=== PATIENT | female | born 1925 ===

== ENCOUNTER 2016-10-12 11:45 | Inpatient (IN) | payer MEDICARE, BC ==
[2016-10-12] MEDS ORDERED: HYDROmorphone 0.5 MG/0.5 ML Syringe IVPUSH ONE ×2 (12:23→16:44)
[2016-10-12] MEDS ORDERED: Ondansetron 4 MG/2 ML SDV IVPUSH ONE (12:23)
[2016-10-12] MEDS ORDERED: Sodium Chloride 0.9% 1,000 ML IV SCH (12:30)
--- NOTE | 2016-10-12 12:32 | EDM.PDOC ---
ED HPI Trauma - General Chief Complaint: Lower Extremity Injury/Pain Stated Complaint: [facility] Time Seen by Provider: 10/12/16 12:06 Source: Reports: Patient History Limitations: Reports: No limitations - History of Present Illness INITIAL COMMENTS - FREE TEXT/NARRATIVE: Patient is a 89-year-old female with a history of Alzheimer's presents to the ED via ambulance complaining of left hip pain. Patient is a resident of a local longterm and walks normally with no assistance. She normally utilizes the hand rails when ambulating. Per staff patient was walking and grabbed the handrail slipped causing her to fall landing on her left side. Staff states patient did not have any loss consciousness but complained of severe pain to her left hip. She's been acting appropriate per nursing staff and family. Patient was transported to the ED via a balance with administration of IV pain medications with some relief during transfer. Occurred When: just prior to arrival Occurred Where: other ([facility]) Method of Injury: fall Severity: moderate Pain/Injury Location: Reports: lower extremity, left (left hip, left clavicle) Associated Symptoms: Reports: confusion (hx of dementia), trouble walking ( nonweightbearing) Allergies/ADRs: Allergies No Known Allergies Allergy (Verified 04/07/16 18:49) Home Medications: Ambulatory Orders Diltiazem [Tiazac] 60 mg PO TID 01/11/14 [Confirmed 10/12/16] Sertraline [Zoloft] 25 mg PO DAILY 01/11/14 [Confirmed 10/12/16] Brinzolamide/Brimonidine Tart [Simbrinza 1%-0.2% Eye Drops] 1 drop EYEBOTH DAILY 07/02/15 [Confirmed 10/12/16] Docusate Sodium [Colace] 100 mg PO DAILY 07/02/15 [Confirmed 10/12/16] Cranberry 250 mg PO BEDTIME 10/03/15 [Confirmed 10/12/16] Docusate Sodium [Dulcolax Stool Softener] 100 mg PO ONCALL 10/03/15 [Confirmed 10/12/16] Memantine HCl [Namenda Xr] 10 mg PO BID 10/03/15 [Confirmed 10/12/16] Acetaminophen [Tylenol] 650 mg PO BID 10/12/16 [Confirmed 10/12/16] Aspirin [Halfprin] 81 mg PO DAILY 10/12/16 [Confirmed 10/12/16] Bisacodyl [Correctol] 10 mg 10/12/16 Capsaicin 1 applic TOP BID PRN 10/12/16 [Confirmed 10/12/16] Nut Tx, Lact-Reduced, Iron [Boost VHC] 3 oz PO QID 10/12/16 [Confirmed 10/12/16] traMADol [Ultram] 50 mg PO ASDIRECTED PRN 10/12/16 [Confirmed 10/12/16] Past Medical History HEENT History: Reports: Glaucoma Cardiovascular History: Reports: Hypertension Gastrointestinal History: Reports: Chronic constipation Genitourinary History: Reports: Renal disease Musculoskeletal History: Reports: Osteoporosis Neurological History: Reports: Alzheimers disease, Other (see below) Other Neuro History: dementia ;behavioral disturbance Psychiatric History: Reports: Dementia Social & Family History - Tobacco Use Smoking Status *Q: Unknown Ever Smoked Second Hand Smoke Exposure: No - Caffeine Use Caffeine Use: Reports: Coffee - Alcohol Use Days Per Week of Alcohol Use: 0 - Recreational Drug Use Recreational Drug Use: No - Living Situation & Occupation Living situation: Reports: , with spouse, assisted living Review of Systems - Review of Systems Review Of Systems: Unable To Obtain Trauma Exam - Physical Exam Exam: See Below Exam Limited By: Other (confused, in pain, does not answer all questions) General Appearance: Reports: alert, WD/WN, moderate distress Head: Reports: atraumatic, normocephalic Eyes: bilateral eye: EOMI, PERRL Ears: Reports: normal external exam, hearing grossly normal Nose: Reports: normal inspection Throat/Mouth: Reports: Normal inspection, Normal voice, No airway compromise Neck: Reports: normal alignment, normal inspection Respiratory Exam: Reports: no respiratory distress, lungs clear, normal breath sounds, no accessory muscle use, chest non-tender Cardiovascular: Reports: normal peripheral pulses, regular rate, rhythm GI/Abdominal: Reports: normal bowel sounds, soft, non tender, no organomegaly, no distention Back: Reports: non-tender Extremities: Reports: other (Pain to the left hip with palpation. Left leg is shortened and externally rotated. Increased pain with palpation. Left: clavicle increased pain to the left clavicle with no swelling/deformity. ) Neurologic: Reports: no motor/sensory deficits, alert, normal mood/affect, other (Upper extremity strength is equal bilaterally. No obvious facial droop. Speech is clear. ) Skin: Reports: Normal color, Warm/dry Course - Vital Signs Last Recorded V/S: Last Vital Signs Temp 99.3 F 10/12/16 19:31 Pulse 79 10/12/16 19:31 Resp 16 10/12/16 19:31 BP 121/88 10/12/16 19:31 Pulse Ox 93 L 10/12/16 19:31 - Orders/Labs/Meds Orders: Active Orders 24 hr Category Date Time Status Insert Urinary Catheter [OM.PC] Stat Care 10/12/16 12:30 Ordered Urinary Catheter Assessment [RC] BID Care 10/12/16 12:26 Active Hip wo Cont Lt [CT] Stat Exams 10/12/16 12:22 Taken Sodium Chloride 0.9% [Normal Saline] 1,000 ml Med 10/12/16 12:30 Active IV ASDIRECTED Medication Orders Acetaminophen (Tylenol) 650 mg PO Q4H PRN PRN Reason: Pain (Mild 1-3)/fever Acetaminophen (Tylenol) 650 mg PO BID [facility] Last Admin: 10/12/16 20:35 Dose: Not Given Acetaminophen/Hydrocodone Bitart ([place] 325-5 Mg) 1 tab PO Q4H PRN PRN Reason: Pain (moderate 4-6) Albuterol/Ipratropium (Duoneb 3.0-0.5 Mg/3 Ml) 3 ml NEB Q4H PRN PRN Reason: Shortness Of Breath/wheezing Aspirin (Halfprin) 81 mg PO DAILY [facility] Bisacodyl (Dulcolax) 5 mg PO DAILY PRN PRN Reason: Constipation Capsaicin (Zostrix 0.025% Crm) 0 gm TOP BID PRN PRN Reason: Rash (USUALLY USED FOR PAIN) Diltiazem HCl (Cardizem) 60 mg PO TID [facility] Last Admin: 10/12/16 20:35 Dose: Not Given Docusate Sodium (Colace) 100 mg PO BID PRN PRN Reason: Constipation Hydromorphone HCl (Dilaudid) 0.25 mg IVPUSH Q2H PRN PRN Reason: Pain (severe 7-10) Last Admin: 10/12/16 18:15 Dose: 0.25 mg Sodium Chloride (Normal Saline) 1,000 mls @ 45 mls/hr IV ASDIRECTED [facility] Last Admin: 10/12/16 13:09 Dose: 45 mls/hr Promethazine HCl 12.5 mg/ (Sodium Chloride) 50.5 mls @ 100 mls/hr IV Q6H PRN PRN Reason: Nausea/Vomiting Ceftriaxone Sodium 1 gm/ (Sodium Chloride) 100 mls @ 200 mls/hr IV Q24H [facility] Last Admin: 10/12/16 20:33 Dose: 200 mls/hr Lorazepam (Ativan) 0.5 mg IV Q6H PRN PRN Reason: Anxiety Last Admin: 10/12/16 18:16 Dose: 0.5 mg Memantine (Namenda) 10 mg PO BID [facility] Last Admin: 10/12/16 20:35 Dose: Not Given Ondansetron HCl (Zofran) 4 mg IV Q6H PRN PRN Reason: Nausea/Vomiting Nut Tx, Lact-Reduced , Iron [Boost Vhc] 3 Oz 0 each PO QID [facility] Last Admin: 10/12/16 20:35 Dose: Admin: 10/12/16 17:21 Dose: Cranberry 250 Mg 0 each PO BEDTIME [facility] Last Admin: 10/12/16 20:35 Dose: Brinzolamide/Brimonidine Tart [ Simbrinza 1%-0.2% Eye Drop] 0 each EYEBOTH DAILY [facility] Polyethylene Glycol (Miralax) 17 gm PO DAILY PRN PRN Reason: Constipation Senna/Docusate Sodium (Senna Plus) 1 tab PO BID PRN PRN Reason: Constipation Sertraline HCl (Zoloft) 50 mg PO DAILY [facility] Temazepam (Restoril) 7.5 mg PO BEDTIME PRN PRN Reason: Sleep Labs: Laboratory Tests 10/12/16 10/12/16 10/12/16 Range/Units 13:10 13:10 13:10 WBC 7.04 (3.98-10.04) K/mm3 RBC 4.14 (3.98-5.22) M/mm3 Hgb 13.4 (11.2-15.7) gm/L Hct 40.7 (34.1-44.9) % MCV 98.3 H (79.4-94.8) fl MCH 32.4 H (25.6-32.2) pg MCHC 32.9 (32.2-35.5) g/dl RDW Std Deviation 44.5 (36.4-46.3) fL Plt Count 164 L (182-369) K/mm3 MPV 9.4 (9.4-12.3) fl Neut % (Auto) 81.1 H (34.0-71.1) % Lymph % (Auto) 11.8 L (19.3-51.7) % [place] % (Auto) 5.5 (4.7-12.5) % Eos % (Auto) 0.4 L (0.7-5.8) Baso % (Auto) 0.3 (0.1-1.2) % Neut # 5.71 (1.56-6.13) K/mm3 Lymph # 0.83 L (1.18-3.74) K/mm3 [place] # 0.39 H (0.24-0.36) K/mm3 Eos # 0.03 L (0.04-0.36) K/mm3 Baso # 0.02 (0.01-0.08) K/mm3 PT 10.7 (8.0-13.0) SECONDS INR 0.98 APTT 22 (22-36) SECONDS Sodium 143 (136-145) mEq/L Potassium 4.1 (3.5-5.1) mEq/L Chloride 103 (98-107) mEq/L Carbon Dioxide 30 (21-32) mEq/L Anion Gap 14.1 (5-15) BUN 26 H (7-18) mg/dL Creatinine 0.9 (0.55-1.02) mg/dL Est Cr Clr Drug Dosing 29.80 mL/min Estimated GFR (MDRD) 59 (>60) mL/min BUN/Creatinine Ratio 28.9 H (14-18) Glucose 135 H (83-115) mg/dL Calcium 9.4 (8.5-10.1) mg/dL Total Bilirubin 0.4 (0.2-1.0) mg/dL AST 28 (15-37) U/L ALT 36 (14-59) U/L Alkaline Phosphatase 106 (46-116) U/L Total Protein 7.8 (6.4-8.2) g/dl Albumin 4.4 (3.4-5.0) g/dl Globulin 3.4 gm/dL Albumin/Globulin Ratio 1.3 (1-2) Urine Color (Yellow) Urine Appearance (Clear) Urine pH (5.0-8.0) Ur Specific Golden (1.005-1.030) Urine Protein (Negative) Urine Glucose (UA) (Negative) Urine Ketones (Negative) Urine Occult Blood (Negative) Urine Nitrite (Negative) Urine Bilirubin (Negative) Urine Urobilinogen (0.2-1.0) Ur Leukocyte Esterase (Negative) Urine RBC (0-5) /hpf Urine WBC (0-5) /hpf Ur Squamous Epith Cells (0-5) /hpf Amorphous Sediment (NOT SEEN) /hpf Urine Bacteria (FEW) /hpf Urine Mucus (FEW) /hpf Blood Type Gel Antibody Screen 10/12/16 10/12/16 Range/Units 13:10 14:30 WBC (3.98-10.04) K/mm3 RBC (3.98-5.22) M/mm3 Hgb (11.2-15.7) gm/L Hct (34.1-44.9) % MCV (79.4-94.8) fl MCH (25.6-32.2) pg MCHC (32.2-35.5) g/dl RDW Std Deviation (36.4-46.3) fL Plt Count (182-369) K/mm3 MPV (9.4-12.3) fl Neut % (Auto) (34.0-71.1) % Lymph % (Auto) (19.3-51.7) % [place] % (Auto) (4.7-12.5) % Eos % (Auto) (0.7-5.8) Baso % (Auto) (0.1-1.2) % Neut # (1.56-6.13) K/mm3 Lymph # (1.18-3.74) K/mm3 [place] # (0.24-0.36) K/mm3 Eos # (0.04-0.36) K/mm3 Baso # (0.01-0.08) K/mm3 PT (8.0-13.0) SECONDS INR APTT (22-36) SECONDS Sodium (136-145) mEq/L Potassium (3.5-5.1) mEq/L Chloride (98-107) mEq/L Carbon Dioxide (21-32) mEq/L Anion Gap (5-15) BUN (7-18) mg/dL Creatinine (0.55-1.02) mg/dL Est Cr Clr Drug Dosing mL/min Estimated GFR (MDRD) (>60) mL/min BUN/Creatinine Ratio (14-18) Glucose (83-115) mg/dL Calcium (8.5-10.1) mg/dL Total Bilirubin (0.2-1.0) mg/dL AST (15-37) U/L ALT (14-59) U/L Alkaline Phosphatase (46-116) U/L Total Protein (6.4-8.2) g/dl Albumin (3.4-5.0) g/dl Globulin gm/dL Albumin/Globulin Ratio (1-2) Urine Color Light yellow (Yellow) Urine Appearance Cloudy H (Clear) Urine pH 7.5 (5.0-8.0) Ur Specific Golden 1.025 (1.005-1.030) Urine Protein 2+ H (Negative) Urine Glucose (UA) Negative (Negative) Urine Ketones Negative (Negative) Urine Occult Blood 2+ H (Negative) Urine Nitrite Positive H (Negative) Urine Bilirubin Negative (Negative) Urine Urobilinogen 0.2 (0.2-1.0) Ur Leukocyte Esterase Trace H (Negative) Urine RBC 0-5 (0-5) /hpf Urine WBC 20-30 H (0-5) /hpf Ur Squamous Epith Cells 0-5 (0-5) /hpf Amorphous Sediment Moderate H (NOT SEEN) /hpf Urine Bacteria Many H (FEW) /hpf Urine Mucus Few (FEW) /hpf Blood Type O POSITIVE Gel Antibody Screen Negative Meds: Medications Generic Name Dose Route Start Last Admin Trade Name Freq PRN Reason Stop Dose Admin Acetaminophen 650 mg 10/12/16 14:48 Tylenol PO Q4H PRN Pain (Mild 1-3)/fever Acetaminophen 650 mg 10/12/16 21:00 10/12/16 20:35 Tylenol PO Not Given BID ONEL Acetaminophen/Hydrocodone Bitart 1 tab 10/12/16 14:48 [place] 325-5 Mg PO Q4H PRN Pain (moderate 4-6) Albuterol/Ipratropium 3 ml 10/12/16 14:48 Duoneb 3.0-0.5 Mg/3 Ml NEB Q4H PRN Shortness Of Breath/wheezing Aspirin 81 mg 10/13/16 09:00 Halfprin PO DAILY ON[facility] Bisacodyl 5 mg 10/12/16 14:48 Dulcolax PO DAILY PRN Constipation Capsaicin 0 gm 10/12/16 16:57 Zostrix 0.025% Crm TOP BID PRN Rash (USUALLY USED FOR PAIN) Diltiazem HCl 60 mg 10/12/16 21:00 10/12/16 20:35 Cardizem PO Not Given TID [facility] Docusate Sodium 100 mg 10/12/16 14:48 Colace PO BID PRN Constipation Hydromorphone HCl 0.25 mg 10/12/16 14:48 10/12/16 18:15 Dilaudid IVPUSH 0.25 mg Q2H PRN Administration Pain (severe 7-10) Sodium Chloride 1,000 mls @ 45 mls/hr 10/12/16 12:30 10/12/16 13:09 Normal Saline IV 45 mls/hr ASDIRECTED ONEL Administration Promethazine HCl 12.5 mg/ 50.5 mls @ 100 mls/hr 10/12/16 14:48 Sodium Chloride IV Q6H PRN Nausea/Vomiting Ceftriaxone Sodium 1 gm/ 100 mls @ 200 mls/hr 10/12/16 20:15 10/12/16 20:33 Sodium Chloride IV 200 mls/hr Q24H ONEL Administration Lorazepam 0.5 mg 10/12/16 14:48 10/12/16 18:16 Ativan IV 0.5 mg Q6H PRN Administration Anxiety Memantine 10 mg 10/12/16 21:00 10/12/16 20:35 Namenda PO Not Given BID [facility] Ondansetron HCl 4 mg 10/12/16 14:48 Zofran IV Q6H PRN Nausea/Vomiting Nut Tx, Lact-Reduced 0 each 10/12/16 17:00 10/12/16 20:35 , Iron [Boost Vhc] 3 PO Not Given Oz QID [facility] Cranberry 250 Mg 0 each 10/12/16 21:00 10/12/16 20:35 PO Not Given BEDTIME [facility] Brinzolamide/ 0 each 10/13/16 09:00 Brimonidine Tart [ EYEBOTH Simbrinza 1%-0.2% DAILY ON[facility] Eye Drop] Polyethylene Glycol 17 gm 10/12/16 14:48 Miralax PO DAILY PRN Constipation Senna/Docusate Sodium 1 tab 10/12/16 14:48 Senna Plus PO BID PRN Constipation Sertraline HCl 50 mg 10/13/16 09:00 Zoloft PO DAILY ON[facility] Temazepam 7.5 mg 10/12/16 14:48 Restoril PO BEDTIME PRN Sleep Discontinued Medications Generic Name Dose Route Start Last Admin Trade Name [place] PRN Reason Stop Dose Admin Hydromorphone HCl 0.25 mg 10/12/16 12:23 10/12/16 13:09 Dilaudid IVPUSH 10/12/16 12:24 0.25 mg ONETIME ONE Administration Hydromorphone HCl 0.25 mg 10/12/16 16:44 10/12/16 16:54 Dilaudid IVPUSH 10/12/16 16:45 0.25 mg ONETIME ONE Administration Ondansetron HCl 4 mg 10/12/16 12:23 10/12/16 13:11 Zofran IVPUSH 10/12/16 12:24 4 mg ONETIME ONE Administration - Re-Assessments/Exams Free Text/Narrative Re-Assessment/Exam: Peripheral IV started by [place] ambulance. Patient received fentanyl 50mcg during transport for pain. Patient has history of dementia and is in obvious pain. Patient is grimacing and has tears with examining. Patient answers minimal questions during examination. Per family her mentation is appropriate. She is a DNR. It was reported patient normally walks without any assistance. Uses the hand rail to ambulate and this a.m. was walking as she normally does when she went to grab the handrail, missed the handrail, and fell landing on her left shoulder/left hip/hitting her head as well. This was a witnessed fall with no LOC. Patient immediately screamed out in pain. Patient was noted to be hypotensive immediately after the fall. Patient takes cardizem 60mg t.i.d. First dose was at 0800 hrs this a.m. Upon arrival to the E.D. patients BP was 166/84, HR 71, SPO2 95. Patients pain to the left shoulder has subsided while in the E.D. Patient has no pain with movement of the left arm at the shoulder. Additional Family arrived at patients side and is responding appropriately. Ordered NS 45mls/hr, zofran 4mg IVP, dilaudid 0.25mg IVP. Initial labs and studies include: CBC,C14,CRP, PT/INR,PTT, Type and Screen, UA w/micro, CT of the head without, CT cervical spine, CT of the left hip, murray insertion. 10/12/16 12:33 10/12/16 12:45 EKG revealed sinus rhythm at a rate of 71, normal P axis, GA interval is 182, QTC is 492, no acute ST changes noted. Artifact present. 10/12/16 13:[address] impression: Senescent changes noted above. No acute intracranial abnormalities seen. CT of the cervical spine impression: Diffuse degenerative changes noted above. No acute fractures seen. Left hip CT: displaced fracture of the neck of femoral head. Final interpretation pending. Awaiting xray of chest to evaluate clavicle and left femur. 10/12/16 13:36 chest x-ray impression: Emphysematous change. Nothing acute is identified. 10/12/16 14:[address] 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 He has accepted the patient and will do surgery tomorrow a.m. as long as will admit. Discussed with Dr. Lane, suggest asking if family is okay with having surgery here in [place]. If so will admit. 10/12/16 14:31 Patients family and spouse are okay with patient staying here in [place] to have surgery. Admit orders placed by Dr. Perry. Departure - Departure Time of Disposition: 14:33 Disposition: Admitted As Inpatient 68 Condition: good Clinical Impression: Fracture of neck of femur, hip Dementia Qualifiers: Dementia type: Alzheimer's disease Alzheimer's disease onset: unspecified onset Dementia behavioral disturbance: without behavioral disturbance Qualified Code(s): G30.9 - Alzheimer's disease, unspecified Hip fracture, left Qualifiers: Encounter type: initial encounter Fracture type: closed Qualified Code(s): S72.002A - Fracture of unspecified part of neck of left femur, initial encounter for closed fracture - My Orders Last 24 Hours: My Active Orders 10/12/16 12:22 Hip wo Cont Lt [CT] Stat 10/12/16 12:26 Urinary Catheter Assessment [RC] BID 10/12/16 12:30 Insert Urinary Catheter [OM.PC] Stat Sodium Chloride 0.9% [Normal Saline] 1,000 ml IV ASDIRECTED - Assessment/Plan Last 24 Hours: My Active Orders 10/12/16 12:22 Hip wo Cont Lt [CT] Stat 10/12/16 12:26 Urinary Catheter Assessment [RC] BID 10/12/16 12:30 Insert Urinary Catheter [OM.PC] Stat Sodium Chloride 0.9% [Normal Saline] 1,000 ml IV ASDIRECTED
--- NOTE | 2016-10-12 13:08 | CT ---
Head CT Technique: Multiple axial sections through the brain were obtained. Intravenous contrast was not utilized. Comparison: Previous head CT exam of 04/07/16. Findings: Ventricles along with basal cisterns and sulci over the convexities are moderately prominent. Diminished density is noted within the subcortical and periventricular white matter compatible with small vessel ischemic demyelination change. No evidence of intracranial hemorrhage. No midline shift or mass effect is seen. Bone window settings were reviewed which shows the visualized sinuses to appear clear. No discrete calvarial abnormality is seen. Impression: 1. Senescent change as noted above. No acute intracranial abnormality is seen. Diagnostic code #2
--- NOTE | 2016-10-12 13:08 | CT ---
CT cervical spine Technique: Multiple axial sections were obtained from above C1 inferiorly to the bottom of T1. Reconstructed sagittal and coronal images were reviewed. Findings: C2-C3: Moderate disc space narrowing is noted. Mild spondylolisthesis is seen. Spondylolisthesis is felt to be due to degenerative apophyseal change. Severe disc space narrowing at C3-C4, C4-C5 and C5-C6. Moderate disc space narrowing is noted at C6-C7. Mild posterior spurring seen at C3-C4 and C4-C5 as well as C5-C6 and C6-C7. Minimal retrolisthesis is noted at C4-C5 and C5-C6 compatible with degenerative apophyseal change. Mild right-sided neural foraminal stenosis noted at C3-C4. Moderate to severe left-sided neural foraminal stenosis noted at C4-C5 and severe right-sided neural foraminal stenosis noted at C4-C5. Moderate to severe bilateral neural foraminal stenosis noted C5-C6. Mild right-sided neural foraminal stenosis noted at C6-C7. No bony central canal stenosis is seen. No fracture is identified. Diffuse degenerative change is seen within the uncovertebral joints from C3-C4 through C6-C7. Impression: 1. Diffuse degenerative change as noted above. 2. No acute fracture is seen. Diagnostic code #3
--- NOTE | 2016-10-12 13:34 | CR ---
Chest: Supine view of the chest was obtained. Comparison: Previous chest x-ray of 07/02/15. Heart size and mediastinum are within normal limits. Lungs are hyperinflated but clear. Scoliosis is noted within the spine. Disc space narrowing is noted within the lumbar spine. Impression: 1. Emphysematous change. Other incidental findings. Nothing acute is identified. Diagnostic code #2
[2016-10-12] MEDS ORDERED: Temazepam 7.5 MG Cap PO PRN (14:48)
[2016-10-12] MEDS ORDERED: Polyethylene Glycol 3350 Powder 17 GM Packet PO PRN (14:48)
[2016-10-12] MEDS ORDERED: Acetaminophen 325 MG Tab PO PRN (14:48)
[2016-10-12] MEDS ORDERED: Albuterol/Ipratropium 3.0-0.5 MG/3 ML Neb Soln NEB PRN (14:48)
[2016-10-12] MEDS ORDERED: Bisacodyl 5 MG Tab PO PRN (14:48)
[2016-10-12] MEDS ORDERED: Ondansetron 4 MG/2 ML SDV IV PRN (14:48)
[2016-10-12] MEDS ORDERED: Docusate Sodium 100 MG Cap PO PRN (14:48)
[2016-10-12] MEDS ORDERED: Promethazine 12.5 MG in Sodium Chloride 0.9% 50 ML IV PRN (14:48)
--- NOTE | 2016-10-12 14:48 | PCM.HP ---
H&P History of Present Illness - General Date of Service: 10/12/16 Admit Problem/Dx: Admission Diagnosis/Problem Admission Diagnosis/Problem Fall Source of Information: Patient, Family, Old records History Limitations: Reports: Physical impairment, Other (Memory Impairment) - History of Present Illness Initial Comments - Free Text/Narative: This is an 89 yo elderly white female with past medical hx/o HTN, Constipation, CKD, Osteoporosis, and Advanced Alzheimer's Disease who presented to E w/ complaints of pain status fall and was found to have left hip fracture. Patient is ambulatory prior to fall. Her risk factors include: impaired vision, gait imbalance, osteoporosis and advanced dementia. Her initial work up shows an unremarkable CBC except for a platelet of 164. His Chemistry shows remarkable for BUN 26 and BS 135. UA is pos for UTI. Imaging studies: Cervical Spine, Head CT scan, and CXR all show no acute abnormal findings. FXR shows sub-capital left hip fracture. Hip CT scan confirms hip fracture. Patient was admitted under the services of Hospitalist Team. Ortho has been consulted for surgical correction. She is DNR/DNI. Left Hip Pain Score (Numeric/FACES): 0 - Related Data Allergies/Adverse Reactions: Allergies Allergy/AdvReac Type Severity Reaction Status Date / Time No Known Allergies Allergy Verified 04/07/16 18:49 Home Medications: Home Meds Diltiazem [Tiazac] 60 mg PO TID 01/11/14 [History] Sertraline [Zoloft] 25 mg PO DAILY 01/11/14 [History] Brinzolamide/Brimonidine Tart [Simbrinza 1%-0.2% Eye Drops] 1 drop EYEBOTH DAILY 07/02/15 [History] Docusate Sodium [Colace] 100 mg PO DAILY 07/02/15 [History] Cranberry 250 mg PO BEDTIME 10/03/15 [History] Docusate Sodium [Dulcolax Stool Softener] 100 mg PO ONCALL 10/03/15 [History] Memantine HCl [Namenda Xr] 10 mg PO BID 10/03/15 [History] Acetaminophen [Tylenol] 650 mg PO BID 10/12/16 [History] Aspirin [Halfprin] 81 mg PO DAILY 10/12/16 [History] Bisacodyl [Correctol] 10 mg 10/12/16 [History] Capsaicin 1 applic TOP BID PRN 10/12/16 [History] Nut Tx, Lact-Reduced, Iron [Boost VHC] 3 oz PO QID 10/12/16 [History] traMADol [Ultram] 50 mg PO ASDIRECTED PRN 10/12/16 [History] Past Medical History HEENT History: Reports: Glaucoma Cardiovascular History: Reports: Hypertension Gastrointestinal History: Reports: Chronic constipation Genitourinary History: Reports: Renal disease Musculoskeletal History: Reports: Osteoporosis Neurological History: Reports: Alzheimers disease, Other (see below) Other Neuro History: dementia ;behavioral disturbance Psychiatric History: Reports: Dementia Social & Family History - Tobacco Use Smoking Status *Q: Unknown Ever Smoked Second Hand Smoke Exposure: No - Caffeine Use Caffeine Use: Reports: Coffee - Alcohol Use Days Per Week of Alcohol Use: 0 - Recreational Drug Use Recreational Drug Use: No - Living Situation & Occupation Living situation: Reports: , with spouse, assisted living H&P Review of Systems - Review of Systems: Review Of Systems: Unable To Obtain Review of Systems Comment:: Patient does not respond to simple commands. She is confused and in pain. Exam - Exam Exam: See Below - Vital Signs Vital Signs: Last Vital Signs Temp 37.1 C 10/12/16 11:54 Pulse 75 10/12/16 11:54 Resp 30 H 10/12/16 11:54 BP 174/118 H 10/12/16 11:54 Pulse Ox 99 10/12/16 11:54 Weight: 44.543 kg - Exam Quality Assessment: No: supplemental oxygen General: other (awake). No: oriented, cooperative, mild distress HEENT: Conjunctiva clear, Mucosa moist & pink, Nares patent, Normal nasal septum , Posterior pharynx clear, Pupils equal, Pupils reactive Neck: supple, trachea midline, 2+ carotid pulse wo bruit Lungs: Normal respiratory effort, Decreased breath sounds Cardiovascular: regular rate, regular rhythm Abdomen: normal bowel sounds, soft. No: organomegaly (Female) Exam: Deferred Rectal (Female) Exam: Deferred Back Exam: normal inspection, decreased range of motion Extremities: normal inspection, normal pulses, clubbing, cyanosis. No: calf tenderness, edema Peripheral Pulses: 2+: dorsalis pedis (L), dorsalis pedis (R) Skin: warm, dry, intact Neuro Extensive - Mental Status: No: oriented x3, normal cognition, memory intact Neuro Extensive - Motor, Sensory, Reflexes: CN II-XII intact (very limited), abnormal gait Psychiatric: No: normal affect, normal mood - Patient Data Lab Results last 24 hrs: Laboratory Results - last 24 hr 10/12/16 10/12/16 10/12/16 Range/Units 13:10 13:10 13:10 WBC 7.04 (3.98-10.04) K/mm3 RBC 4.14 (3.98-5.22) M/mm3 Hgb 13.4 (11.2-15.7) gm/L Hct 40.7 (34.1-44.9) % MCV 98.3 H (79.4-94.8) fl MCH 32.4 H (25.6-32.2) pg MCHC 32.9 (32.2-35.5) g/dl RDW Std Deviation 44.5 (36.4-46.3) fL Plt Count 164 L (182-369) K/mm3 MPV 9.4 (9.4-12.3) fl Neut % (Auto) 81.1 H (34.0-71.1) % Lymph % (Auto) 11.8 L (19.3-51.7) % [place] % (Auto) 5.5 (4.7-12.5) % Eos % (Auto) 0.4 L (0.7-5.8) Baso % (Auto) 0.3 (0.1-1.2) % Neut # 5.71 (1.56-6.13) K/mm3 Lymph # 0.83 L (1.18-3.74) K/mm3 [place] # 0.39 H (0.24-0.36) K/mm3 Eos # 0.03 L (0.04-0.36) K/mm3 Baso # 0.02 (0.01-0.08) K/mm3 PT 10.7 (8.0-13.0) SECONDS INR 0.98 APTT 22 (22-36) SECONDS Sodium 143 (136-145) mEq/L Potassium 4.1 (3.5-5.1) mEq/L Chloride 103 (98-107) mEq/L Carbon Dioxide 30 (21-32) mEq/L Anion Gap 14.1 (5-15) BUN 26 H (7-18) mg/dL Creatinine 0.9 (0.55-1.02) mg/dL Est Cr Clr Drug Dosing 29.80 mL/min Estimated GFR (MDRD) 59 (>60) mL/min BUN/Creatinine Ratio 28.9 H (14-18) Glucose 135 H (83-115) mg/dL Calcium 9.4 (8.5-10.1) mg/dL Total Bilirubin 0.4 (0.2-1.0) mg/dL AST 28 (15-37) U/L ALT 36 (14-59) U/L Alkaline Phosphatase 106 (46-116) U/L Total Protein 7.8 (6.4-8.2) g/dl Albumin 4.4 (3.4-5.0) g/dl Globulin 3.4 gm/dL Albumin/Globulin Ratio 1.3 (1-2) Urine Color (Yellow) Urine Appearance (Clear) Urine pH (5.0-8.0) Ur Specific [place] (1.005-1.030) Urine Protein (Negative) Urine Glucose (UA) (Negative) Urine Ketones (Negative) Urine Occult Blood (Negative) Urine Nitrite (Negative) Urine Bilirubin (Negative) Urine Urobilinogen (0.2-1.0) Ur Leukocyte Esterase (Negative) Blood Type Gel Antibody Screen 10/12/16 10/12/16 Range/Units 13:10 14:30 WBC (3.98-10.04) K/mm3 RBC (3.98-5.22) M/mm3 Hgb (11.2-15.7) gm/L Hct (34.1-44.9) % MCV (79.4-94.8) fl MCH (25.6-32.2) pg MCHC (32.2-35.5) g/dl RDW Std Deviation (36.4-46.3) fL Plt Count (182-369) K/mm3 MPV (9.4-12.3) fl Neut % (Auto) (34.0-71.1) % Lymph % (Auto) (19.3-51.7) % [place] % (Auto) (4.7-12.5) % Eos % (Auto) (0.7-5.8) Baso % (Auto) (0.1-1.2) % Neut # (1.56-6.13) K/mm3 Lymph # (1.18-3.74) K/mm3 [place] # (0.24-0.36) K/mm3 Eos # (0.04-0.36) K/mm3 Baso # (0.01-0.08) K/mm3 PT (8.0-13.0) SECONDS INR APTT (22-36) SECONDS Sodium (136-145) mEq/L Potassium (3.5-5.1) mEq/L Chloride (98-107) mEq/L Carbon Dioxide (21-32) mEq/L Anion Gap (5-15) BUN (7-18) mg/dL Creatinine (0.55-1.02) mg/dL Est Cr Clr Drug Dosing mL/min Estimated GFR (MDRD) (>60) mL/min BUN/Creatinine Ratio (14-18) Glucose (83-115) mg/dL Calcium (8.5-10.1) mg/dL Total Bilirubin (0.2-1.0) mg/dL AST (15-37) U/L ALT (14-59) U/L Alkaline Phosphatase (46-116) U/L Total Protein (6.4-8.2) g/dl Albumin (3.4-5.0) g/dl Globulin gm/dL Albumin/Globulin Ratio (1-2) Urine Color Light yellow (Yellow) Urine Appearance Cloudy H (Clear) Urine pH 7.5 (5.0-8.0) Ur Specific [place] 1.025 (1.005-1.030) Urine Protein 2+ H (Negative) Urine Glucose (UA) Negative (Negative) Urine Ketones Negative (Negative) Urine Occult Blood 2+ H (Negative) Urine Nitrite Positive H (Negative) Urine Bilirubin Negative (Negative) Urine Urobilinogen 0.2 (0.2-1.0) Ur Leukocyte Esterase Trace H (Negative) Blood Type O POSITIVE Gel Antibody Screen Negative Result Diagrams: 10/12/16 13:10 10/12/16 13:10 *Q Meaningful Use (ADM) - VTE *Q VTE Criteria *Q: - Stroke *Q Stroke Criteria *Q: - AMI *Q AMI Criteria *Q: Problem List Initiated/Reviewed/Updated: Yes Orders Last 24hrs: Active Orders 24 hr Category Date Time Status Patient Status [ADT] Routine ADT 10/12/16 14:33 Active EKG 12 Lead [EKG Documentation Completion] [RC] STAT Care 10/12/16 11:30 Active Insert Urinary Catheter [OM.PC] Stat Care 10/12/16 12:30 Ordered Urinary Catheter Assessment [RC] ASDIRECTED Care 10/12/16 12:26 Active Femur Min 2V Lt [CR] Stat Exams 10/12/16 12:31 Taken Hip wo Cont Lt [CT] Stat Exams 10/12/16 12:22 Taken PATIENT RETYPE [BBK] Stat Lab 10/12/16 13:10 Results TYPE AND SCREEN [BBK] Stat Lab 10/12/16 13:10 Results UA W/MICROSCOPIC [URIN] Stat Lab 10/12/16 14:30 Results Sodium Chloride 0.9% [Normal Saline] 1,000 ml Med 10/12/16 12:30 Active IV ASDIRECTED Medication Orders Sodium Chloride (Normal Saline) 1,000 mls @ 45 mls/hr IV ASDIRECTED ONEL Last Admin: 10/12/16 13:09 Dose: 45 mls/hr Assessment/Plan Comment:: Assessment/Plan: Acute: Left Sub-Capital Hip Fx - 2/2 Mechanical Fall - Risk Factors: Osteoporosis, Alzheimer's Disease, Poor Vision with Glaucoma +/- Hypotension post fall (noted hypotensive) - No LOC - Planned surgical correction by Ortho in am - Family agreed to stay despite limited resources Pre-Operative Risk Stratification - Risk factors: None - METS > 4, SVS, Ekg /CXR: benign - Physical exam fairly benign - No recent cardiac or lung eval - No active cardiac or lung disease - Not an active smoker - Based on the data provided, the patient carries mild-mod cardiac risk for intermediate surgical risk Urinary Tract Infection - Start IV Rocephin 1 gram daily - Pending UA Sx/Cx Chronic: Glaucoma HTN Constipation Renal Disease Osteoporosis Alzheimer's Disease Plan: Routine AM labs Resume Home Meds IV ATB PT/OT consult IS q2 awake after surgery PPI for GI ppx DVT ppx: SCDs for now Pain Management: Aspiration/Fall Precautions Code status: DNR/DNI
--- NOTE | 2016-10-12 14:49 | CR ---
Left femur: AP and lateral views of the left femur were obtained. Subcapital fracture within the left hip is again seen. Joint space narrowing is seen within the medial knee. Osteopenia is noted. No additional abnormality is noted within the left femur. Impression: 1. Subcapital left hip fracture. 2. Degenerative change within the knee. 3. No additional abnormality is identified on left femur study. Diagnostic code #3
[2016-10-12] MEDS ORDERED: Denosumab 60 MG/1 ML Syringe SUBCUT SCH (15:00)
--- NOTE | 2016-10-12 15:11 | PCM.PREANE ---
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: Reports: no symptoms Respiratory: Reports: no symptoms Cardiovascular: Reports: no symptoms GI: Reports: no symptoms Other: Reports: none - PHYSICAL ASSESSMENT HR: 82 O2 Sat by Pulse Oximetry: 99 RR: 30 Vital Signs: Last Vital Signs Temp 37.1 C 10/12/16 11:54 Pulse 75 10/12/16 11:54 Resp 30 H 10/12/16 11:54 BP 174/118 H 10/12/16 11:54 Pulse Ox 99 10/12/16 11:54 Height: 1.57 m Weight: 44.543 kg ASA Class: 3 Mental Status: other (dementia diagnosised 3 years ago according to family) Airway Class: Mallampati = 2 Dentition: Reports: normal dentition Thyro-Mental Finger Breadths: 2 Mouth Opening Finger Breadths: 3 ROM/Head Extension: limited/partial (unable to follow commands at the time of assessment) Respiratory Status: lungs clear to auscultation bilaterally Cardiovascular Status: regular rate & rhythm, normal S1, S2, no murmur, blood pressure WNL - LAB Values: Laboratory Last Values WBC 7.04 K/mm3 (3.98-10.04) 10/12/16 13:10 RBC 4.14 M/mm3 (3.98-5.22) 10/12/16 13:10 Hgb 13.4 gm/L (11.2-15.7) 10/12/16 13:10 Hct 40.7 % (34.1-44.9) 10/12/16 13:10 MCV 98.3 fl (79.4-94.8) H 10/12/16 13:10 MCH 32.4 pg (25.6-32.2) H 10/12/16 13:10 MCHC 32.9 g/dl (32.2-35.5) 10/12/16 13:10 RDW Std Deviation 44.5 fL (36.4-46.3) 10/12/16 13:10 Plt Count 164 K/mm3 (182-369) L 10/12/16 13:10 MPV 9.4 fl (9.4-12.3) 10/12/16 13:10 Neut % (Auto) 81.1 % (34.0-71.1) H 10/12/16 13:10 Lymph % (Auto) 11.8 % (19.3-51.7) L 10/12/16 13:10 [place] % (Auto) 5.5 % (4.7-12.5) 10/12/16 13:10 Eos % (Auto) 0.4 (0.7-5.8) L 10/12/16 13:10 Baso % (Auto) 0.3 % (0.1-1.2) 10/12/16 13:10 Neut # 5.71 K/mm3 (1.56-6.13) 10/12/16 13:10 Lymph # 0.83 K/mm3 (1.18-3.74) L 10/12/16 13:10 [place] # 0.39 K/mm3 (0.24-0.36) H 10/12/16 13:10 Eos # 0.03 K/mm3 (0.04-0.36) L 10/12/16 13:10 Baso # 0.02 K/mm3 (0.01-0.08) 10/12/16 13:10 PT 10.7 SECONDS (8.0-13.0) 10/12/16 13:10 INR 0.98 10/12/16 13:10 APTT 22 SECONDS (22-36) 10/12/16 13:10 Sodium 143 mEq/L (136-145) 10/12/16 13:10 Potassium 4.1 mEq/L (3.5-5.1) 10/12/16 13:10 Chloride 103 mEq/L (98-107) 10/12/16 13:10 Carbon Dioxide 30 mEq/L (21-32) 10/12/16 13:10 Anion Gap 14.1 (5-15) 10/12/16 13:10 BUN 26 mg/dL (7-18) H 10/12/16 13:10 Creatinine 0.9 mg/dL (0.55-1.02) 10/12/16 13:10 Est Cr Clr Drug Dosing 29.80 mL/min 10/12/16 13:10 Estimated GFR (MDRD) 59 mL/min (>60) 10/12/16 13:10 BUN/Creatinine Ratio 28.9 (14-18) H 10/12/16 13:10 Glucose 135 mg/dL (83-115) H 10/12/16 13:10 Calcium 9.4 mg/dL (8.5-10.1) 10/12/16 13:10 Total Bilirubin 0.4 mg/dL (0.2-1.0) 10/12/16 13:10 AST 28 U/L (15-37) 10/12/16 13:10 ALT 36 U/L (14-59) 10/12/16 13:10 Alkaline Phosphatase 106 U/L (46-116) 10/12/16 13:10 Total Protein 7.8 g/dl (6.4-8.2) 10/12/16 13:10 Albumin 4.4 g/dl (3.4-5.0) 10/12/16 13:10 Globulin 3.4 gm/dL 10/12/16 13:10 Albumin/Globulin Ratio 1.3 (1-2) 10/12/16 13:10 Urine Color Light yellow (Yellow) 10/12/16 14:30 Urine Appearance Cloudy (Clear) H 10/12/16 14:30 Urine pH 7.5 (5.0-8.0) 10/12/16 14:30 Ur Specific [place] 1.025 (1.005-1.030) 10/12/16 14:30 Urine Protein 2+ (Negative) H 10/12/16 14:30 Urine Glucose (UA) Negative (Negative) 10/12/16 14:30 Urine Ketones Negative (Negative) 10/12/16 14:30 Urine Occult Blood 2+ (Negative) H 10/12/16 14:30 Urine Nitrite Positive (Negative) H 10/12/16 14:30 Urine Bilirubin Negative (Negative) 10/12/16 14:30 Urine Urobilinogen 0.2 (0.2-1.0) 10/12/16 14:30 Ur Leukocyte Esterase Trace (Negative) H 10/12/16 14:30 Blood Type O POSITIVE 10/12/16 13:10 Gel Antibody Screen Negative 10/12/16 13:10 - ALLERGIES Allergies/Adverse Reactions: Allergies Allergy/AdvReac Type Severity Reaction Status Date / Time No Known Allergies Allergy Verified 04/07/16 18:49 - BLOOD Blood Available: Yes Product(s) Available: PRBC - ANESTHESIA PLAN Anesthesia Type Planned: spinal - ACKNOWLEDGEMENTS Pt an appropriate candidate for the planned anesthesia: Yes Alternatives and risks of anesthesia discussed w pt/guardian: Yes Pt/Guardian understands and agree with anesthesia plan: Yes PreAnesthesia Questionnaire HEENT History: Reports: Glaucoma Cardiovascular History: Reports: Hypertension Gastrointestinal History: Reports: Chronic constipation Genitourinary History: Reports: Renal disease Musculoskeletal History: Reports: Osteoporosis Neurological History: Reports: Other (see below) Other Neuro History: dementia ;behavioral disturbance Psychiatric History: Reports: Dementia - Past Surgical History Female Surgical History: Reports: Hysterectomy - SUBSTANCE USE Smoking Status *Q: Never Smoker Second Hand Smoke Exposure: No Days Per Week of Alcohol Use: 0 Recreational Drug Use History: No - HOME MEDS Home Medications: Home Meds Diltiazem [Tiazac] 60 mg PO TID 01/11/14 [History] Sertraline [Zoloft] 50 mg PO DAILY 01/11/14 [History] Brinzolamide/Brimonidine Tart [Simbrinza 1%-0.2% Eye Drops] 1 drop EYEBOTH DAILY 07/02/15 [History] Docusate Sodium [Colace] 100 mg PO DAILY 07/02/15 [History] Cranberry 250 mg PO BEDTIME 10/03/15 [History] Docusate Sodium [Dulcolax Stool Softener] 100 mg PO ONCALL PRN 10/03/15 [History ] Memantine HCl [Namenda Xr] 10 mg PO BID 10/03/15 [History] Denosumab [Prolia] 60 mg SUBCUT ASDIRECTED 04/07/16 [History] Bisacodyl [Correctol] 10 mg 10/12/16 [History] Nut Tx, Lact-Reduced, Iron [Boost VHC] 3 oz PO QID 10/12/16 [History] - CURRENT (IN HOUSE) MEDS Current Meds: Current Medications Acetaminophen (Tylenol) 650 mg PO Q4H PRN PRN Reason: Pain (Mild 1-3)/fever Acetaminophen/Hydrocodone Bitart ([place] 325-5 Mg) 1 tab PO Q4H PRN PRN Reason: Pain (moderate 4-6) Albuterol/Ipratropium (Duoneb 3.0-0.5 Mg/3 Ml) 3 ml NEB Q4H PRN PRN Reason: Shortness Of Breath/wheezing Bisacodyl (Dulcolax) 5 mg PO DAILY PRN PRN Reason: Constipation Denosumab (Prolia) 60 mg SUBCUT ASDIRECTED [facility] Docusate Sodium (Colace) 100 mg PO BID PRN PRN Reason: Constipation Hydromorphone HCl (Dilaudid) 0.25 mg IVPUSH Q2H PRN PRN Reason: Pain (severe 7-10) Sodium Chloride (Normal Saline) 1,000 mls @ 45 mls/hr IV ASDIRECTED [facility] Last Admin: 10/12/16 13:09 Dose: 45 mls/hr Promethazine HCl 12.5 mg/ (Sodium Chloride) 50.5 mls @ 100 mls/hr IV Q6H PRN PRN Reason: Nausea/Vomiting Lorazepam (Ativan) 0.5 mg IV Q6H PRN PRN Reason: Anxiety Non-Formulary Medication (Nut Tx, Lact-Reduced, Iron [Boost Vhc]) 3 oz PO QID [facility] Non-Formulary Medication (Cranberry) 250 mg PO BEDTIME [facility] Non-Formulary Medication (Brinzolamide/Brimonidine Tart [Simbrinza 1%-0.2% Eye Drops]) 1 drop EYEBOTH DAILY [facility] Ondansetron HCl (Zofran) 4 mg IV Q6H PRN PRN Reason: Nausea/Vomiting Polyethylene Glycol (Miralax) 17 gm PO DAILY PRN PRN Reason: Constipation Senna/Docusate Sodium (Senna Plus) 1 tab PO BID PRN PRN Reason: Constipation Sertraline HCl (Zoloft) 50 mg PO DAILY [facility] Temazepam (Restoril) 15 mg PO BEDTIME PRN PRN Reason: Sleep Discontinued Medications Hydromorphone HCl (Dilaudid) 0.25 mg IVPUSH ONETIME ONE Stop: 10/12/16 12:24 Last Admin: 10/12/16 13:09 Dose: 0.25 mg Ondansetron HCl (Zofran) 4 mg IVPUSH ONETIME ONE Stop: 10/12/16 12:24 Last Admin: 10/12/16 13:11 Dose: 4 mg
[2016-10-12] MEDS ORDERED: Capsaicin 0.025% Crm 60 GM Tube TOP PRN (16:57)
[2016-10-12] MEDS: [UNRECOGNIZED DRUG - OTHER] PO SCH ×2 (17:21→20:35)
[2016-10-12] MEDS: IRON PO SCH ×2 (17:21→20:35)
[2016-10-12] MEDS: HYDROmorphone 0.5 MG/0.5 ML Syringe IVPUSH PRN (18:15)
[2016-10-12] MEDS: LORazepam 2 MG/ML MDV IV PRN (18:16)
[2016-10-12] MEDS: cefTRIAXone 1 GM in Sodium Chloride 0.9% 100 ML IV SCH (20:33)
[2016-10-12] MEDS: Acetaminophen 325 MG Tab PO SCH (20:35)
[2016-10-12] MEDS: CRANBERRY 250 MG PO SCH (20:35)
[2016-10-12] MEDS: Memantine 10 MG Tab PO SCH (20:35)
[2016-10-13] MEDS: HYDROmorphone 0.5 MG/0.5 ML Syringe IVPUSH PRN (01:13)
--- NOTE | 2016-10-13 08:11 | CT ---
CT left hip Technique: Multiple axial sections through the left hip were obtained. Subcapital fracture is seen with apex anterior angulation. Mild foreshortening is also seen. Superior and inferior pubic rami appear without fracture on the left side. No acetabular abnormality is seen. Impression: 1. Angulated and foreshortened subcapital fracture within the left hip. Diagnostic code #3 MTDD
[2016-10-13] MEDS ORDERED: Vancomycin 1 GM SDV ONE (08:26)
--- NOTE | 2016-10-13 08:33 | CONS ---
CONSULTING PHYSICIAN: Tayo Covington MD DATE OF CONSULTATION: 10/12/2016 Orthopedic consultation called for by emergency room physician for evaluation of a left hip fracture. HISTORY OF PRESENT ILLNESS: This is an 89-year-old female, who [facility] local [facility] today when she suffered a fall onto the hip area. After the fall, the patient had severe pain and was unable walk. She has a history of dementia and is very poor historian, was brought into the emergency room, evaluated for other possible injuries with different studies and then x-rays of her left hip, which identified a subcapital fracture, left hip that was displaced. After the hip fracture was identified, Orthopedic consultation was called for. The patient was evaluated in the emergency room and found to have severely complaints of pain in the hip area. Family is with the patient. ALLERGIES: She has no known drug allergy. PAST MEDICAL HISTORY: The patient has a history of depression and dementia. There is also possibility of cellulitis involving the left foot area. She has a previous history of a fractured clavicle and also history of falls. MEDICATIONS: Include albuterol, lorazepam, Ativan. She is on multivitamins, Zoloft, Restoril, and MiraLAX. PAST SURGICAL HISTORY: Positive. No anesthesia complications or problem noted. SOCIAL HISTORY: The patient is a nonsmoker and nondrinker. Negative bleeding history, negative blood clot history. REVIEW OF SYSTEMS: HEAD, EYES, EARS, NOSE, AND THROAT: The patient currently is clear with no complaints. PULMONARY: The patient has no previous history of significant pulmonary problems, although she does have a possible COPD. Rest of the review of systems noncontributory. PHYSICAL EXAMINATION: GENERAL: Today, reveals an 89-year-old female in severe distress HEAD, EYES, EARS, NOSE, AND THROAT: Normocephalic. NECK: Supple. CHEST: Clear. COR: Regular rhythm and rate. ABDOMEN: Soft. : Intact. EXTREMITIES: Examination left hip reveals severe pain on direct pressure palpation on the hip. Severe pain on any type of internal and external rotation. The patient lysed with the left hip externally rotated. Circulation is intact distally. The left lower extremity. Pelvis stress examinations were negative for any pelvic type fracture or injury. Right lower extremity examination was intact. SKIN: Intact. RADIOLOGY EVALUATION: The x-rays reveal a subcapital fracture, left hip. That is severely displaced. IMPRESSION: Subcapital fracture, left hip displaced. PLANS: 1. The patient is to undergo medical stabilization. 2. Undergo hemiprosthesis, left hip. Procedure was outlined to the family along with the risks and complications involved with that. They understand that and have consented to the surgery. DEEPTHI /[id number]
[2016-10-13] MEDS ORDERED: Metoprolol Tartrate 5 MG/5 ML SDV IVPUSH ONE (08:34)
[2016-10-13] MEDS ORDERED: Lidocaine 1%/Sod Bicarbonate in NS 8.4% 1 ML Syringe IV PRN (08:57)
[2016-10-13] MEDS ORDERED: Sodium Chloride 0.9% 10 ML Syringe FLUSH PRN (08:57)
[2016-10-13] MEDS ORDERED: Docusate Sodium 100 MG Cap PO SCH (09:00)
[2016-10-13] MEDS ORDERED: Ondansetron 4 MG/2 ML SDV IVPUSH PRN (09:03)
[2016-10-13] MEDS ORDERED: fentaNYL 100 MCG/2 ML SDV IVPUSH PRN (09:03)
[2016-10-13] MEDS ORDERED: Propofol 200 MG/20 ML SDV ONE (09:26)
[2016-10-13] MEDS ORDERED: Ondansetron 4 MG/2 ML SDV ONE (09:28)
[2016-10-13] MEDS ORDERED: Lidocaine 1% 4 ML ONE (09:28)
--- NOTE | 2016-10-13 09:28 | PCM.PN ---
- General Info Date of Service: 10/13/16 Admission Dx/Problem (Free Text): Admission Diagnosis/Problem Admission Diagnosis/Problem Fall Lori is seen this morning resting in bed, appears comfortable. She is essentially nonverbal with me this morning due to advanced dementia. Nursing reports no concerns overnight. Family is in room and reports no concerns. She is scheduled for ORIF of left hip with Dr. Covington this morning. Functional Status: Reports: pain controlled, urinating (murray cath in place). Denies: ambulating - Review of Systems Systems Review Comment:: ROS unable to obtain as patient is nonverbal; resting comfortably in bed this morning and appears comfortable. - Patient Data Vitals - most recent: Last Vital Signs Temp 99.7 F 10/13/16 07:53 Pulse 81 10/13/16 08:57 Resp 20 10/13/16 07:53 BP 133/83 10/13/16 08:57 Pulse Ox 96 10/13/16 07:53 Weight - most recent: 97 lb 12.8 oz I&O - last 24 hours: Intake & Output 10/12/16 10/13/16 10/13/16 22:59 06:59 14:59 Intake Total 684 Output Total 350 Balance 334 Lab Results last 24 hrs: Laboratory Results - last 24 hr 10/13/16 10/13/16 10/13/16 Range/Units 01:10 06:42 06:42 WBC 8.95 (3.98-10.04) K/mm3 RBC 4.02 (3.98-5.22) M/mm3 Hgb 13.0 (11.2-15.7) gm/L Hct 39.7 (34.1-44.9) % MCV 98.8 H (79.4-94.8) fl MCH 32.3 H (25.6-32.2) pg MCHC 32.7 (32.2-35.5) g/dl RDW Std Deviation 44.9 (36.4-46.3) fL Plt Count 149 L (182-369) K/mm3 MPV 9.6 (9.4-12.3) fl Neut % (Auto) 84.6 H (34.0-71.1) % Lymph % (Auto) 5.3 L (19.3-51.7) % [place] % (Auto) 9.8 (4.7-12.5) % Eos % (Auto) 0 L (0.7-5.8) Baso % (Auto) 0.1 (0.1-1.2) % Neut # 7.57 H (1.56-6.13) K/mm3 Lymph # 0.47 L (1.18-3.74) K/mm3 [place] # 0.88 H (0.24-0.36) K/mm3 Eos # 0.00 L (0.04-0.36) K/mm3 Baso # 0.01 (0.01-0.08) K/mm3 Manual Slide Review Abnormal smear Sodium 141 (136-145) mEq/L Potassium 4.6 (3.5-5.1) mEq/L Chloride 104 (98-107) mEq/L Carbon Dioxide 30 (21-32) mEq/L Anion Gap 11.6 (5-15) BUN 25 H (7-18) mg/dL Creatinine 0.9 (0.55-1.02) mg/dL Est Cr Clr Drug Dosing 29.68 mL/min Estimated GFR (MDRD) 59 (>60) mL/min BUN/Creatinine Ratio 27.8 H (14-18) Glucose 129 H (83-115) mg/dL Calcium 8.8 (8.5-10.1) mg/dL Magnesium 1.8 (1.8-2.4) mg/dl MRSA (PCR) Negative Med Orders - Current: Current Medications Acetaminophen (Tylenol) 650 mg PO Q4H PRN PRN Reason: Pain (Mild 1-3)/fever Acetaminophen (Tylenol) 650 mg PO BID [facility] Last Admin: 10/12/16 20:35 Dose: Not Given Acetaminophen/Hydrocodone Bitart (Ramona 325-5 Mg) 1 tab PO Q4H PRN PRN Reason: Pain (moderate 4-6) Albuterol (Proventil Neb Soln) 2.5 mg NEB Q6HRRT [facility] Albuterol/Ipratropium (Duoneb 3.0-0.5 Mg/3 Ml) 3 ml NEB Q4H PRN PRN Reason: Shortness Of Breath/wheezing Aspirin (Halfprin) 81 mg PO DAILY [facility] Bisacodyl (Dulcolax) 5 mg PO DAILY PRN PRN Reason: Constipation Capsaicin (Zostrix 0.025% Crm) 0 gm TOP BID PRN PRN Reason: Rash (USUALLY USED FOR PAIN) Diltiazem HCl (Cardizem) 60 mg PO TID [facility] Last Admin: 10/13/16 08:34 Dose: Not Given Docusate Sodium (Colace) 100 mg PO BID [facility] Fentanyl (Sublimaze) 50 mcg IVPUSH Q5M PRN PRN Reason: Pain Stop: 10/13/16 18:00 Hydromorphone HCl (Dilaudid) 0.25 mg IVPUSH Q2H PRN PRN Reason: Pain (severe 7-10) Last Admin: 10/13/16 01:13 Dose: 0.25 mg Sodium Chloride (Normal Saline) 1,000 mls @ 45 mls/hr IV ASDIRECTED [facility] Last Admin: 10/12/16 13:09 Dose: 45 mls/hr Promethazine HCl 12.5 mg/ (Sodium Chloride) 50.5 mls @ 100 mls/hr IV Q6H PRN PRN Reason: Nausea/Vomiting Ceftriaxone Sodium 1 gm/ (Sodium Chloride) 100 mls @ 200 mls/hr IV Q24H [facility] Last Admin: 10/12/16 20:33 Dose: 200 mls/hr Lactated Ringer's (Ringers, Lactated) 1,000 mls @ 125 mls/hr IV ASDIRECTED [facility] Lidocaine/Sodium Bicarbonate (Buffered Lidocaine 1% In Ns 8.4%) 0.25 ml IV ONETIME PRN PRN Reason: Prior to IV Start Stop: 10/13/16 18:00 Lorazepam (Ativan) 0.5 mg IV Q6H PRN PRN Reason: Anxiety Last Admin: 10/12/16 18:16 Dose: 0.5 mg Memantine (Namenda) 10 mg PO BID [facility] Last Admin: 10/12/16 20:35 Dose: Not Given Ondansetron HCl (Zofran) 4 mg IV Q6H PRN PRN Reason: Nausea/Vomiting Ondansetron HCl (Zofran) 4 mg IVPUSH ONETIME PRN PRN Reason: Nausea/Vomiting Stop: 10/13/16 18:00 Nut Tx, Lact-Reduced , Iron [Boost Vhc] 3 Oz 0 each PO QID [facility] Last Admin: 10/12/16 20:35 Dose: Not Given Cranberry 250 Mg 0 each PO BEDTIME ONEL Last Admin: 10/12/16 20:35 Dose: Not Given Brinzolamide/Brimonidine Tart [ Simbrinza 1%-0.2% Eye Drop] 0 each EYEBOTH DAILY [facility] Polyethylene Glycol (Miralax) 17 gm PO DAILY PRN PRN Reason: Constipation Sertraline HCl (Zoloft) 50 mg PO DAILY [facility] Sodium Chloride (Saline Flush) 10 ml FLUSH ASDIRECTED PRN PRN Reason: Keep Vein Open Stop: 10/13/16 18:00 Temazepam (Restoril) 7.5 mg PO BEDTIME PRN PRN Reason: Sleep Discontinued Medications Docusate Sodium (Colace) 100 mg PO BID PRN PRN Reason: Constipation Docusate Sodium (Colace) 100 mg PO DAILY [facility] Hydromorphone HCl (Dilaudid) 0.25 mg IVPUSH ONETIME ONE Stop: 10/12/16 12:24 Last Admin: 10/12/16 13:09 Dose: 0.25 mg Hydromorphone HCl (Dilaudid) 0.25 mg IVPUSH ONETIME ONE Stop: 10/12/16 16:45 Last Admin: 10/12/16 16:54 Dose: 0.25 mg Lidocaine HCl (Xylocaine-Mpf 1%) Confirm Administered Dose 4 mls @ as directed .ROUTE .STK-MED ONE Stop: 10/13/16 09:29 Iodine (Iodine 2% Mild Tincture) Confirm Administered Dose 30 ml .ROUTE .STK- MED ONE Stop: 10/13/16 08:27 Metoprolol Tartrate (Lopressor) 5 mg IVPUSH ONETIME ONE Stop: 10/13/16 08:35 Last Admin: 10/13/16 08:57 Dose: 5 mg Ondansetron HCl (Zofran) 4 mg IVPUSH ONETIME ONE Stop: 10/12/16 12:24 Last Admin: 10/12/16 13:11 Dose: 4 mg Ondansetron HCl (Zofran) Confirm Administered Dose 4 mg .ROUTE .STK-MED ONE Stop: 10/13/16 09:29 Propofol (Diprivan 20 Ml) Confirm Administered Dose 400 mg .ROUTE .STK-MED ONE Stop: 10/13/16 09:27 Senna/Docusate Sodium (Senna Plus) 1 tab PO BID PRN PRN Reason: Constipation Vancomycin HCl (Vancomycin) Confirm Administered Dose 1 gm .ROUTE .K-MED ONE Stop: 10/13/16 08:27 - Exam General: alert (arouses easily and opens eyes when spoken to), cooperative, no acute distress HEENT: Pupils equal, EOMI, Mucous membr. moist/pink Neck: supple Lungs: Clear to auscultation, Normal respiratory effort, Decreased breath sounds (to bases) Cardiovascular: regular rate, regular rhythm, murmurs (grade 2 systolic murmur noted) Abdomen: bowel sounds present, soft, no tenderness, no distension (Female) Exam: Deferred Extremities: no edema, no calf tenderness Peripheral Pulses: 1+: dorsalis pedis (L), dorsalis pedis (R) Skin: warm, dry Psy/Mental Status: alert - Problem List & Annotations (1) Fracture of neck of femur, hip SNOMED Code(s): 4556675 Code(s): S72.009A - FRACTURE OF UNSP PART OF NECK OF UNSP FEMUR, INIT Status: Acute Priority: High Current Visit: Yes (2) UTI (urinary tract infection) SNOMED Code(s): 34709344 Code(s): N39.0 - URINARY TRACT INFECTION, SITE NOT SPECIFIED Status: Acute Current Visit: No Qualifiers: Urinary tract infection type: acute cystitis Hematuria presence: with hematuria Qualified Code(s): N30.01 - Acute cystitis with hematuria (3) Fall as cause of accidental injury at home as place of occurrence SNOMED Code(s): 25473724, 920403230 Code(s): W19.XXXA - UNSPECIFIED FALL, INITIAL ENCOUNTER; Y92.009 - UNSP PLACE IN UNSP NON-INSTITUT (PRIVATE) RESIDENCE PLACE Status: Acute Priority: High Current Visit: Yes (4) Dementia SNOMED Code(s): 30481166 Code(s): F03.90 - UNSPECIFIED DEMENTIA WITHOUT BEHAVIORAL DISTURBANCE Status: Chronic Priority: Medium Current Visit: Yes Qualifiers: Dementia type: Alzheimer's disease Alzheimer's disease onset: unspecified onset Dementia behavioral disturbance: without behavioral disturbance Qualified Code(s): G30.9 - Alzheimer's disease, unspecified; F02.80 - Dementia in other diseases classified elsewhere without behavioral disturbance (5) Acute renal insufficiency SNOMED Code(s): 517366143 Code(s): N28.9 - DISORDER OF KIDNEY AND URETER, UNSPECIFIED Status: Chronic Priority: Medium Current Visit: Yes - Problem List Review Problem List Initiated/Reviewed/Updated: Yes - My Orders Last 24 Hours: My Active Orders 10/13/16 09:07 RT Aerosol Therapy [RC] ASDIRECTED 10/13/16 12:00 Albuterol [Proventil Neb Soln] 2.5 mg NEB Q6HRRT 10/13/16 21:00 Docusate Sodium [Colace] 100 mg PO BID - Plan Plan:: Assessment/Plan: Acute: Left Sub-Capital Hip Fx - 2/2 Mechanical Fall - Risk Factors: Osteoporosis, Alzheimer's Disease, Poor Vision with Glaucoma +/- Hypotension post fall (noted hypotensive) - No LOC - Planned surgical correction by Ortho this morning - Family agreed to stay despite limited resources Pre-Operative Risk Stratification - Risk factors: None - METS > 4, SVS, Ekg /CXR: benign - Physical exam fairly benign - No recent cardiac or lung eval - No active cardiac or lung disease - Not an active smoker - Based on the data provided, the patient carries mild-mod cardiac risk for intermediate surgical risk Urinary Tract Infection - Start IV Rocephin 1 gram daily - Pending UA Sx/Cx Chronic: Glaucoma HTN Constipation Renal Disease- stable Osteoporosis Alzheimer's Disease- advanced Plan: Routine AM labs-- labs stable this morning Resume Home Meds IV ATB- Rocephin for AUTI, pencing UC&S PT/OT consult, postoperatively IS q2 awake after surgery PPI for GI ppx DVT ppx: SCDs for now Pain Management: Aspiration/Fall Precautions Likely return to SNF 2-3 days postop if does well. Code status: DNR/DNI
[2016-10-13] MEDS: Memantine 10 MG Tab PO SCH ×2 (09:52→22:13)
[2016-10-13] MEDS: Aspirin 81 MG Tab.EC PO SCH (09:52)
[2016-10-13] MEDS: Acetaminophen 325 MG Tab PO SCH ×2 (09:53→22:14)
[2016-10-13] MEDS: IRON PO SCH ×4 (09:53→22:14)
[2016-10-13] MEDS: [UNRECOGNIZED DRUG - OTHER] PO SCH ×4 (09:53→22:14)
[2016-10-13] MEDS: Sertraline 50 MG Tab PO SCH (09:54)
[2016-10-13] MEDS ORDERED: Pneumococcal 13-Valent Conjugate Vaccine 0.5 ML Syringe IM ONE (10:51)
[2016-10-13] MEDS: BRIMONIDINE TART EYEBOTH SCH (11:03)
[2016-10-13] MEDS ORDERED: ceFAZolin 1 GM Vial ONE (11:03)
[2016-10-13] MEDS: BRINZOLAMIDE EYEBOTH SCH (11:03)
[2016-10-13] MEDS: Iodine/Sodium Iodide 2% Tincture 30 ML Bottle ONE ×2 (11:10→11:30)
[2016-10-13] MEDS ORDERED: ceFAZolin 1 GM in Premix Bag 1 BAG IV SCH (12:00)
[2016-10-13] MEDS: Albuterol 0.083% 2.5 MG/3 ML Neb Soln NEB SCH ×3 (12:06→22:26)
--- NOTE | 2016-10-13 12:56 | PCM.POSTAN ---
POST ANESTHESIA ASSESSMENT - MENTAL STATUS Mental Status: confused, other (at baseline mental state ) - VITAL SIGNS Pulse Rate: 96 SaO2: 94 Resp Rate: 24 Blood Pressure: 142/84 Temperature: 36.5 C - RESPIRATORY Respiratory Status: respiratory rate WNL, airway patent, O2 saturation stable - CARDIOVASCULAR CV Status: pulse rate WNL, blood pressure stable - GASTROINTESTINAL GI Status: no symptoms, other - POST OP HYDRATION Hydration Status: adequate & stable - OBSERVATIONS Free Text/Narrative:: unable to state pain level, patient does not appear to be in any pain
--- NOTE | 2016-10-13 13:26 | CR ---
Left hip: AP and lateral views of the left hip were obtained utilizing portable technique. Comparison: Previous CT left hip exam of 10/12/16 is available as well as left femur exam of 10/12/16. Left hip prosthesis is seen. Components are aligned. Underlying bony structures are intact. Skin tamika and soft tissue air noted. Degenerative change is partially visualized within the lumbar spine. Impression: 1. Satisfactory postoperative radiographic appearance recently placed left hip prosthesis. 2. Other incidental findings as noted above. Diagnostic code #2
[2016-10-13] MEDS: ceFAZolin 1 GM in Premix Bag 1 BAG IV SCH ×2 (14:45→19:54)
[2016-10-13] MEDS: Ketorolac 15 MG/ML SDV IVPUSH PRN (17:44)
[2016-10-13] MEDS: Acetaminophen/HYDROcodone 325-5 MG Tab PO PRN (17:47)
[2016-10-13] MEDS: Lactated Ringers 1,000 ML IV SCH (19:53)
[2016-10-13] MEDS: cefTRIAXone 1 GM in Sodium Chloride 0.9% 100 ML IV SCH (21:42)
[2016-10-13] MEDS: Docusate Sodium 100 MG Cap PO SCH (22:13)
[2016-10-13] MEDS: CRANBERRY 250 MG PO SCH (22:14)
[2016-10-13] MEDS ORDERED: Hydrocortisone 1% Crm 30 GM Tube TOP PRN (22:32)
[2016-10-14] MEDS: Ketorolac 15 MG/ML SDV IVPUSH PRN ×3 (00:51→15:47)
[2016-10-14] MEDS: LORazepam 2 MG/ML MDV IV PRN (01:28)
[2016-10-14] MEDS: ceFAZolin 1 GM in Premix Bag 1 BAG IV SCH ×2 (02:31→08:20)
[2016-10-14] MEDS: Albuterol 0.083% 2.5 MG/3 ML Neb Soln NEB SCH ×4 (05:14→21:51)
[2016-10-14] MEDS: Lactated Ringers 1,000 ML IV SCH ×3 (05:44→22:43)
--- NOTE | 2016-10-14 07:31 | OR ---
DATE OF OPERATION: 10/13/2016 SURGEON: Tayo Covington MD PREOPERATIVE DIAGNOSIS: Displaced subcapital fracture, left hip. POSTOPERATIVE DIAGNOSIS: Displaced subcapital fracture, left hip. ANESTHESIA: Spinal with sedation. OPERATION PERFORMED: Left hip hemiprosthesis with cement. DESCRIPTION OF PROCEDURE: The patient was taken to the operating room in supine position and was placed under spinal anesthesia and light sedation. The patient was then transferred to the right lateral decubitus position for operation on the left hip. Once the left hip was exposed, it was then prepped and draped by standard technique for approach. After prepping and draping, the operation proceeded with an oblique incision being placed across the proximal portion of the greater trochanter, approximately 4 cm in length. Penetration was made through the skin and to the subcutaneous tissues. These were dissected off the fascia veronica. This was incised paralleling the femur and across the greater trochanteric area, thus exposing the gluteus medius. Once the fascia veronica was released, the operation proceeded with development of the anterior approach beginning by the muscle structure of the gluteus medius by finger pressure in the anterior one- third. With the muscle split, the gluteus minimus was then incised paralleling its fibers and then a creating an L-type incision into the greater trochanter and then releasing the gluteus minimus and medius off the anterior portion of the greater trochanter. The gluteus minimus was then released off the capsule by standard technique and thus exposing the joint capsule. A T-incision was placed on the joint capsule, which was noted was very thickened for this patient. Once the capsule was opened, the fracture hematoma was removed. The femoral neck was then cut and then the operation proceeded with removal of the femoral head by standard technique. All remaining loose bone fragments were removed from the joint. Testing of the acetabulum found the 46-mm ball to the fit the best with good suction reduction with minimal movement on translation and pressure. The operation then proceeded with exposing the femoral shaft with the leg being placed in the side pouch. The femoral shaft was then reamed and then also broached to a size cement 7 for the [place] hemiprosthesis system. Once that was completed, thorough irrigation with iodine was used all through the procedure. Bleeders were controlled with cautery. The canal itself was then evaluated and then a cement restrictor was then placed just distal on the canal and then the cement was then inserted into the canal with the size 7 prosthesis being inserted with about 15 degrees of anteversion on the femoral neck. Once that was inserted and fixated, the operation proceeded with application of the standard femoral neck and a 46-mm ball. Once that was applied to the prosthesis, it was then reduced into the acetabulum itself. With it reduced, it reduced with a good suction fit. It was then tested in full flexion and extension, abduction and adduction and stressed. No dislocation or instability was noted. The area was then thoroughly irrigated with surgi-lavage and iodine. The joint capsule was then closed with #1 Vicryl. The gluteus medius and minimus were then reattached to the greater trochanter using the 5.0 FiberWire through drill holes in the greater trochanter and reinforced with #1 Vicryl. The fascia veronica was closed with interrupted #1 Vicryl, subcutaneous tissues with 2-0 Vicryl, and skin with skin tamika. The patient had standard dressings applied. She tolerated this procedure well and left the operating room in a stable condition to Recovery. ESTIMATED BLOOD LOSS: MMODAL /[id number]
[2016-10-14] MEDS: Memantine 10 MG Tab PO SCH ×2 (08:58→20:46)
[2016-10-14] MEDS: BRINZOLAMIDE EYEBOTH SCH (08:59)
[2016-10-14] MEDS: Enoxaparin 30 MG/0.3 ML Syringe SUBCUT SCH (08:59)
[2016-10-14] MEDS: Acetaminophen 325 MG Tab PO SCH ×2 (08:59→20:46)
[2016-10-14] MEDS: Aspirin 81 MG Tab.EC PO SCH (08:59)
[2016-10-14] MEDS: BRIMONIDINE TART EYEBOTH SCH (08:59)
[2016-10-14] MEDS: Sertraline 50 MG Tab PO SCH (08:59)
[2016-10-14] MEDS: Docusate Sodium 100 MG Cap PO SCH ×2 (08:59→20:46)
[2016-10-14] MEDS: IRON PO SCH ×4 (09:00→20:46)
[2016-10-14] MEDS: [UNRECOGNIZED DRUG - OTHER] PO SCH ×4 (09:00→20:46)
[2016-10-14] MEDS ORDERED: Magnesium Sulfate/Water 2 GM in Premix Bag 1 BAG IV ONE (10:24)
--- NOTE | 2016-10-14 11:28 | PCM48HPAN ---
Post Anesthesia Note - EVALUATION WITHIN 48HRS OF ANESTHETIC Vital Signs in Normal Range: Yes Patient Participated in Evaluation: No (pt sleepy and demented ) Respiratory Function Stable: Yes Airway Patent: Yes Cardiovascular Function Stable: Yes Hydration Status Stable: Yes Pain Control Satisfactory: Yes Nausea and Vomiting Control Satisfactory: Yes Mental Status Recovered: Yes (back to baseline ) - COMMENTS/OBSERVATIONS Free Text/Narrative:: Consulted with patient's room nurse and patient's family
--- NOTE | 2016-10-14 14:18 | PCM.PN ---
- General Info Date of Service: 10/14/16 Admission Dx/Problem (Free Text): Admission Diagnosis/Problem Admission Diagnosis/Problem Fall POD #1 ORIF lt hip fx with Dr Covington. Patient doing well thus far. VSS. She has dementia and has had intermittent aggitation but overall pain has been under fairly good control. Functional Status: Reports: pain controlled, urinating (murray cath in place this am at time of my exam). Denies: ambulating - Review of Systems Systems Review Comment:: difficult to obtain as patient with advanced dementia; nonverbal; but appears to be resting comfortably - Patient Data Vitals - most recent: Last Vital Signs Temp 98.5 F 10/14/16 12:00 Pulse 73 10/14/16 12:00 Resp 18 10/14/16 12:00 BP 151/109 H 10/14/16 12:00 Pulse Ox 94 L 10/14/16 12:00 Weight - most recent: 101 lb 12.8 oz I&O - last 24 hours: Intake & Output 10/13/16 10/14/16 10/14/16 22:59 06:59 14:59 Intake Total 250 1107 260 Output Total 100 300 265 Balance 150 807 -5 Lab Results last 24 hrs: Laboratory Results - last 24 hr 10/14/16 10/14/16 10/14/16 Range/Units 01:25 06:50 06:50 WBC 5.23 4.78 (3.98-10.04) K/mm3 RBC 3.17 L 3.10 L (3.98-5.22) M/mm3 Hgb 10.1 L 10.1 L (11.2-15.7) gm/L Hct 31.3 L 30.9 L (34.1-44.9) % MCV 98.7 H 99.7 H (79.4-94.8) fl MCH 31.9 32.6 H (25.6-32.2) pg MCHC 32.3 32.7 (32.2-35.5) g/dl RDW Std Deviation 44.0 45.1 (36.4-46.3) fL Plt Count 105 L 101 L (182-369) K/mm3 MPV 9.8 9.8 (9.4-12.3) fl Neut % (Auto) 76.1 H (34.0-71.1) % Lymph % (Auto) 9.0 L (19.3-51.7) % [place] % (Auto) 13.2 H (4.7-12.5) % Eos % (Auto) 1.3 (0.7-5.8) Baso % (Auto) 0.2 (0.1-1.2) % Neut # 3.64 (1.56-6.13) K/mm3 Lymph # 0.43 L (1.18-3.74) K/mm3 [place] # 0.63 H (0.24-0.36) K/mm3 Eos # 0.06 (0.04-0.36) K/mm3 Baso # 0.01 (0.01-0.08) K/mm3 Manual Slide Review Abnormal smear Sodium 142 (136-145) mEq/L Potassium 3.9 (3.5-5.1) mEq/L Chloride 106 (98-107) mEq/L Carbon Dioxide 29 (21-32) mEq/L Anion Gap 10.9 (5-15) BUN 21 H (7-18) mg/dL Creatinine 0.9 (0.55-1.02) mg/dL Est Cr Clr Drug Dosing 30.44 mL/min Estimated GFR (MDRD) 59 (>60) mL/min BUN/Creatinine Ratio 23.3 H (14-18) Glucose 99 (83-115) mg/dL Calcium 8.6 (8.5-10.1) mg/dL Magnesium 1.6 L (1.8-2.4) mg/dl Med Orders - Current: Current Medications Acetaminophen (Tylenol) 650 mg PO Q4H PRN PRN Reason: Pain (Mild 1-3)/fever Acetaminophen (Tylenol) 650 mg PO BID [facility] Last Admin: 10/14/16 08:59 Dose: 650 mg Acetaminophen/Hydrocodone Bitart ([place] 325-5 Mg) 1 tab PO Q4H PRN PRN Reason: Pain (moderate 4-6) Last Admin: 10/13/16 17:47 Dose: 1 tab Albuterol (Proventil Neb Soln) 2.5 mg NEB Q6HRRT [facility] Last Admin: 10/14/16 11:12 Dose: 2.5 mg Albuterol/Ipratropium (Duoneb 3.0-0.5 Mg/3 Ml) 3 ml NEB Q4H PRN PRN Reason: Shortness Of Breath/wheezing Aspirin (Halfprin) 81 mg PO DAILY [facility] Last Admin: 10/14/16 08:59 Dose: 81 mg Bisacodyl (Dulcolax) 5 mg PO DAILY PRN PRN Reason: Constipation Capsaicin (Zostrix 0.025% Crm) 0 gm TOP BID PRN PRN Reason: Rash (USUALLY USED FOR PAIN) Diltiazem HCl (Cardizem) 60 mg PO TID [facility] Last Admin: 10/14/16 08:58 Dose: 60 mg Docusate Sodium (Colace) 100 mg PO BID [facility] Last Admin: 10/14/16 08:59 Dose: 100 mg Enoxaparin Sodium (Lovenox) 30 mg SUBCUT DAILY [facility] Last Admin: 10/14/16 08:59 Dose: 30 mg Hydrocortisone (Hydrocortisone 1% Crm) 0 gm TOP ASDIRECTED PRN PRN Reason: Itching Hydromorphone HCl (Dilaudid) 0.25 mg IVPUSH Q2H PRN PRN Reason: Pain (severe 7-10) Last Admin: 10/13/16 01:13 Dose: 0.25 mg Promethazine HCl 12.5 mg/ (Sodium Chloride) 50.5 mls @ 100 mls/hr IV Q6H PRN PRN Reason: Nausea/Vomiting Ceftriaxone Sodium 1 gm/ (Sodium Chloride) 100 mls @ 200 mls/hr IV Q24H [facility] Last Admin: 10/13/16 21:42 Dose: 200 mls/hr Lactated Ringer's (Ringers, Lactated) 1,000 mls @ 125 mls/hr IV ASDIRECTED [facility] Last Infusion: 10/14/16 14:01 Dose: Infused Ketorolac Tromethamine (Toradol) 15 mg IVPUSH Q6H PRN PRN Reason: Pain (severe 7-10) Stop: 10/17/16 09:48 Last Admin: 10/14/16 08:58 Dose: 15 mg Lorazepam (Ativan) 0.5 mg IV Q6H PRN PRN Reason: Anxiety Last Admin: 10/14/16 01:28 Dose: 0.5 mg Memantine (Namenda) 10 mg PO BID [facility] Last Admin: 10/14/16 08:58 Dose: 10 mg Ondansetron HCl (Zofran) 4 mg IV Q6H PRN PRN Reason: Nausea/Vomiting Nut Tx, Lact-Reduced , Iron [Boost Vhc] 3 Oz 0 each PO QID [facility] Last Admin: 10/14/16 13:51 Dose: Not Given Cranberry 250 Mg 0 each PO BEDTIME [facility] Last Admin: 10/13/16 22:14 Dose: Not Given Brinzolamide/Brimonidine Tart [ Simbrinza 1%-0.2% Eye Drop] 0 each EYEBOTH DAILY [facility] Last Admin: 10/14/16 08:59 Dose: Not Given Polyethylene Glycol (Miralax) 17 gm PO DAILY PRN PRN Reason: Constipation Sertraline HCl (Zoloft) 50 mg PO DAILY [facility] Last Admin: 10/14/16 08:59 Dose: 50 mg Temazepam (Restoril) 7.5 mg PO BEDTIME PRN PRN Reason: Sleep Discontinued Medications Cefazolin Sodium (Ancef) Confirm Administered Dose 2 gm .ROUTE .STK-MED ONE Stop: 10/13/16 11:04 Docusate Sodium (Colace) 100 mg PO BID PRN PRN Reason: Constipation Docusate Sodium (Colace) 100 mg PO DAILY [facility] Last Admin: 10/13/16 11:04 Dose: Not Given Fentanyl (Sublimaze) 50 mcg IVPUSH Q5M PRN PRN Reason: Pain Stop: 10/13/16 18:00 Hydromorphone HCl (Dilaudid) 0.25 mg IVPUSH ONETIME ONE Stop: 10/12/16 12:24 Last Admin: 10/12/16 13:09 Dose: 0.25 mg Hydromorphone HCl (Dilaudid) 0.25 mg IVPUSH ONETIME ONE Stop: 10/12/16 16:45 Last Admin: 10/12/16 16:54 Dose: 0.25 mg Sodium Chloride (Normal Saline) 1,000 mls @ 45 mls/hr IV ASDIRECTED [facility] Last Admin: 10/12/16 13:09 Dose: 45 mls/hr Lidocaine HCl (Xylocaine-Mpf 1%) Confirm Administered Dose 4 mls @ as directed .ROUTE .STK-MED ONE Stop: 10/13/16 09:29 Cefazolin Sodium/Dextrose 1 gm (/ Premix) 50 mls @ 200 mls/hr IV Q6H [facility] Stop: 10/14/16 06:14 Last Admin: 10/13/16 14:05 Dose: Not Given Cefazolin Sodium/Dextrose 1 gm (/ Premix) 50 mls @ 200 mls/hr IV Q6H [facility] Stop: 10/14/16 08:29 Last Infusion: 10/14/16 09:00 Dose: Infused Magnesium Sulfate 2 gm/ Premix 50 mls @ 25 mls/hr IV ONETIME ONE Stop: 10/14/16 12:23 Last Admin: 10/14/16 11:52 Dose: 25 mls/hr Iodine (Iodine 2% Mild Tincture) Confirm Administered Dose 30 ml .ROUTE .STK- MED ONE Stop: 10/13/16 08:27 Last Admin: 10/13/16 11:30 Dose: 9 ml Lidocaine/Sodium Bicarbonate (Buffered Lidocaine 1% In Ns 8.4%) 0.25 ml IV ONETIME PRN PRN Reason: Prior to IV Start Stop: 10/13/16 18:00 Metoprolol Tartrate (Lopressor) 5 mg IVPUSH ONETIME ONE Stop: 10/13/16 08:35 Last Admin: 10/13/16 08:57 Dose: 5 mg Ondansetron HCl (Zofran) 4 mg IVPUSH ONETIME ONE Stop: 10/12/16 12:24 Last Admin: 10/12/16 13:11 Dose: 4 mg Ondansetron HCl (Zofran) 4 mg IVPUSH ONETIME PRN PRN Reason: Nausea/Vomiting Stop: 10/13/16 18:00 Ondansetron HCl (Zofran) Confirm Administered Dose 4 mg .ROUTE .STK-MED ONE Stop: 10/13/16 09:29 Pneumococcal 13-Valent Conj Vacc (Prevnar 13) 0.5 ml IM .ONCE ONE Stop: 10/13/16 10:52 Propofol (Diprivan 20 Ml) Confirm Administered Dose 400 mg .ROUTE .STK-MED ONE Stop: 10/13/16 09:27 Senna/Docusate Sodium (Senna Plus) 1 tab PO BID PRN PRN Reason: Constipation Sodium Chloride (Saline Flush) 10 ml FLUSH ASDIRECTED PRN PRN Reason: Keep Vein Open Stop: 10/13/16 18:00 Vancomycin HCl (Vancomycin) Confirm Administered Dose 1 gm .ROUTE .[facility]-MED ONE Stop: 10/13/16 08:27 - Exam Quality Assessment: DVT prophylaxis General: alert, cooperative, no acute distress HEENT: Pupils equal, Pupils reactive, EOMI Lungs: Clear to auscultation, Normal respiratory effort, Decreased breath sounds (to bases) Cardiovascular: regular rate, regular rhythm, murmurs Abdomen: bowel sounds present, soft, no tenderness (Female) Exam: Deferred Extremities: no edema, no calf tenderness Peripheral Pulses: 1+: dorsalis pedis (L), dorsalis pedis (R) Wound/Incisions: dressing dry and intact (to lt hip) Psy/Mental Status: alert, other (dementia- end stage- nonverbal but opens eyes when spoken to) - Problem List & Annotations (1) Fracture of neck of femur, hip SNOMED Code(s): 0883570 Code(s): S72.009A - FRACTURE OF UNSP PART OF NECK OF UNSP FEMUR, INIT Status: Acute Priority: High Current Visit: Yes (2) UTI (urinary tract infection) SNOMED Code(s): 61215656 Code(s): N39.0 - URINARY TRACT INFECTION, SITE NOT SPECIFIED Status: Acute Current Visit: No Qualifiers: Urinary tract infection type: acute cystitis Hematuria presence: with hematuria Qualified Code(s): N30.01 - Acute cystitis with hematuria (3) Fall as cause of accidental injury at home as place of occurrence SNOMED Code(s): 26381514, 220567745 Code(s): W19.XXXA - UNSPECIFIED FALL, INITIAL ENCOUNTER; Y92.009 - UNSP PLACE IN UNSP NON-INSTITUT (PRIVATE) RESIDENCE PLACE Status: Acute Priority: High Current Visit: Yes (4) Dementia SNOMED Code(s): 42750469 Code(s): F03.90 - UNSPECIFIED DEMENTIA WITHOUT BEHAVIORAL DISTURBANCE Status: Chronic Priority: Medium Current Visit: Yes Qualifiers: Dementia type: Alzheimer's disease Alzheimer's disease onset: unspecified onset Dementia behavioral disturbance: without behavioral disturbance Qualified Code(s): G30.9 - Alzheimer's disease, unspecified; F02.80 - Dementia in other diseases classified elsewhere without behavioral disturbance (5) Acute renal insufficiency SNOMED Code(s): 810129722 Code(s): N28.9 - DISORDER OF KIDNEY AND URETER, UNSPECIFIED Status: Chronic Priority: Medium Current Visit: Yes - Problem List Review Problem List Initiated/Reviewed/Updated: Yes - My Orders Last 24 Hours: My Active Orders 10/13/16 21:00 Docusate Sodium [Colace] 100 mg PO BID 10/14/16 08:41 Consult to [place] [CONS] Routine - Plan Plan:: Assessment/Plan: Acute: Left Sub-Capital Hip Fx - POD #1 ORIF lt hip fx with Dr. oCvington -Pain management and DVT prophylax per Ortho -VSS -Hgb 10.1, down from 13 preop; cont close monitoring with daily labs Pre-Operative Risk Stratification - Risk factors: None - METS > 4, SVS, Ekg /CXR: benign - Physical exam fairly benign - No recent cardiac or lung eval - No active cardiac or lung disease - Not an active smoker - Based on the data provided, the patient carries mild-mod cardiac risk for intermediate surgical risk Urinary Tract Infection - Start IV Rocephin 1 gram daily - Pending UA Sx/Cx Chronic: Glaucoma HTN Constipation Renal Disease- stable Osteoporosis Alzheimer's Disease- advanced Plan: Routine AM labs-- labs stable this morning Resume Home Meds IV ATB- Rocephin for AUTI, pencing UC&S PT/OT consult, postoperatively IS q2 awake after surgery--will be difficult due to end stage dementia; albuterol QID added PPI for GI ppx DVT ppx: SCDs for now Pain Management: Aspiration/Fall Precautions Likely return to SNF 2-3 days postop if does well. Code status: DNR/DNI
[2016-10-14] MEDS: cefTRIAXone 1 GM in Sodium Chloride 0.9% 100 ML IV SCH (20:35)
[2016-10-14] MEDS: CRANBERRY 250 MG PO SCH (20:47)
[2016-10-15] MEDS: Albuterol 0.083% 2.5 MG/3 ML Neb Soln NEB SCH ×2 (06:40→11:28)
[2016-10-15] MEDS ORDERED: Magnesium Sulfate/Water 2 GM in Premix Bag 1 BAG IV ONE (07:45)
[2016-10-15] MEDS ORDERED: Iron Sucrose Complex 500 MG in Sodium Chloride 0.9% 250 ML IV ONE (08:30)
[2016-10-15] MEDS: Memantine 10 MG Tab PO SCH ×2 (09:34→20:19)
[2016-10-15] MEDS: Sertraline 50 MG Tab PO SCH (09:34)
[2016-10-15] MEDS: BRINZOLAMIDE EYEBOTH SCH (09:35)
[2016-10-15] MEDS: BRIMONIDINE TART EYEBOTH SCH (09:35)
[2016-10-15] MEDS: IRON PO SCH ×4 (09:35→20:20)
[2016-10-15] MEDS: Acetaminophen 325 MG Tab PO SCH ×2 (09:35→20:19)
[2016-10-15] MEDS: Enoxaparin 30 MG/0.3 ML Syringe SUBCUT SCH (09:35)
[2016-10-15] MEDS: Aspirin 81 MG Tab.EC PO SCH (09:35)
[2016-10-15] MEDS: Docusate Sodium 100 MG Cap PO SCH ×3 (09:35→20:33)
[2016-10-15] MEDS: [UNRECOGNIZED DRUG - OTHER] PO SCH ×4 (09:35→20:20)
[2016-10-15] MEDS: Acetaminophen/HYDROcodone 325-5 MG Tab PO PRN (09:43)
--- NOTE | 2016-10-15 15:22 | PCM.PN ---
- General Info Date of Service: 10/15/16 Admission Dx/Problem (Free Text): Admission Diagnosis/Problem Admission Diagnosis/Problem Fall POD #1 ORIF lt hip fx with Dr Covington. Patient doing well thus far. VSS. She has dementia and has had intermittent aggitation but overall pain has been under fairly good control. Subjective Update: Follow Up Functional Status: Reports: pain controlled, tolerating diet, urinating. Denies : new symptoms - Review of Systems General: Denies: fever, chills HEENT: Reports: no symptoms Pulmonary: Denies: shortness of breath Cardiovascular: Denies: chest pain Gastrointestinal: Denies: Abdominal pain, Nausea, Vomiting Musculoskeletal: Reports: back pain Skin: Reports: no symptoms Neurological: Reports: difficulty walking, weakness, gait disturbance. Denies: dizziness, seizure Psychiatric: Denies: depression, anxiety, hallucinations Systems Review Comment:: No overnight or acute issues. She is relatively stable. Alert and awake, appears comfortable. Her Hgb drops to 8.1 from 10 and Mg is at 1.7. - Patient Data Vitals - most recent: Last Vital Signs Temp 37.1 C 10/15/16 11:40 Pulse 65 10/15/16 11:40 Resp 18 10/15/16 11:40 BP 99/48 L 10/15/16 11:40 Pulse Ox 92 L 10/15/16 11:40 Weight - most recent: 49.804 kg I&O - last 24 hours: Intake & Output 10/15/16 10/15/16 10/15/16 06:59 14:59 22:59 Intake Total 1577 Balance 1577 Lab Results last 24 hrs: Laboratory Results - last 24 hr 10/15/16 10/15/16 10/15/16 Range/Units 04:25 04:25 12:00 WBC 4.98 5.84 (3.98-10.04) K/mm3 RBC 2.57 L 2.50 L (3.98-5.22) M/mm3 Hgb 8.1 L 8.1 L (11.2-15.7) gm/L Hct 25.5 L 24.8 L (34.1-44.9) % MCV 99.2 H 99.2 H (79.4-94.8) fl MCH 31.5 32.4 H (25.6-32.2) pg MCHC 31.8 L 32.7 (32.2-35.5) g/dl RDW Std Deviation 42.8 42.9 (36.4-46.3) fL Plt Count 99 L 101 L (182-369) K/mm3 MPV 10.3 9.7 (9.4-12.3) fl Neut % (Auto) 80.0 H 78.2 H (34.0-71.1) % Lymph % (Auto) 7.2 L 9.6 L (19.3-51.7) % [place] % (Auto) 10.0 10.1 (4.7-12.5) % Eos % (Auto) 2.2 1.5 (0.7-5.8) Baso % (Auto) 0.4 0.3 (0.1-1.2) % Neut # 3.98 4.56 (1.56-6.13) K/mm3 Lymph # 0.36 L 0.56 L (1.18-3.74) K/mm3 [place] # 0.50 H 0.59 H (0.24-0.36) K/mm3 Eos # 0.11 0.09 (0.04-0.36) K/mm3 Baso # 0.02 0.02 (0.01-0.08) K/mm3 Manual Slide Review Abnormal smear Abnormal smear Sodium 142 (136-145) mEq/L Potassium 3.6 (3.5-5.1) mEq/L Chloride 107 (98-107) mEq/L Carbon Dioxide 29 (21-32) mEq/L Anion Gap 9.6 (5-15) BUN 19 H (7-18) mg/dL Creatinine 0.7 (0.55-1.02) mg/dL Est Cr Clr Drug Dosing 39.13 mL/min Estimated GFR (MDRD) > 60 (>60) mL/min BUN/Creatinine Ratio 27.1 H (14-18) Glucose 109 (83-115) mg/dL Calcium 8.0 L (8.5-10.1) mg/dL Magnesium 1.7 L (1.8-2.4) mg/dl Med Orders - Current: Current Medications Acetaminophen (Tylenol) 650 mg PO Q4H PRN PRN Reason: Pain (Mild 1-3)/fever Last Admin: 10/14/16 15:46 Dose: 650 mg Acetaminophen (Tylenol) 650 mg PO BID [facility] Last Admin: 10/15/16 09:35 Dose: 650 mg Acetaminophen/Hydrocodone Bitart ([place] 325-5 Mg) 1 tab PO Q4H PRN PRN Reason: Pain (moderate 4-6) Last Admin: 10/15/16 09:43 Dose: 1 tab Albuterol (Proventil Neb Soln) 2.5 mg NEB Q6HRRT [facility] Last Admin: 10/15/16 11:28 Dose: 2.5 mg Albuterol/Ipratropium (Duoneb 3.0-0.5 Mg/3 Ml) 3 ml NEB Q4H PRN PRN Reason: Shortness Of Breath/wheezing Aspirin (Halfprin) 81 mg PO DAILY [facility] Last Admin: 10/15/16 09:35 Dose: 81 mg Bisacodyl (Dulcolax) 5 mg PO DAILY PRN PRN Reason: Constipation Capsaicin (Zostrix 0.025% Crm) 0 gm TOP BID PRN PRN Reason: Rash (USUALLY USED FOR PAIN) Diltiazem HCl (Cardizem) 60 mg PO TID [facility] Last Admin: 10/15/16 15:06 Dose: 60 mg Docusate Sodium (Colace) 100 mg PO BID [facility] Last Admin: 10/15/16 09:35 Dose: Not Given Enoxaparin Sodium (Lovenox) 30 mg SUBCUT DAILY [facility] Last Admin: 10/15/16 09:35 Dose: 30 mg Hydrocortisone (Hydrocortisone 1% Crm) 0 gm TOP ASDIRECTED PRN PRN Reason: Itching Hydromorphone HCl (Dilaudid) 0.25 mg IVPUSH Q2H PRN PRN Reason: Pain (severe 7-10) Last Admin: 10/13/16 01:13 Dose: 0.25 mg Promethazine HCl 12.5 mg/ (Sodium Chloride) 50.5 mls @ 100 mls/hr IV Q6H PRN PRN Reason: Nausea/Vomiting Ceftriaxone Sodium 1 gm/ (Sodium Chloride) 100 mls @ 200 mls/hr IV Q24H [facility] Last Admin: 10/14/16 20:35 Dose: 200 mls/hr Lactated Ringer's (Ringers, Lactated) 1,000 mls @ 125 mls/hr IV ASDIRECTED [facility] Last Admin: 10/14/16 22:43 Dose: 125 mls/hr Ketorolac Tromethamine (Toradol) 15 mg IVPUSH Q6H PRN PRN Reason: Pain (severe 7-10) Stop: 10/17/16 09:48 Last Admin: 10/14/16 15:47 Dose: 15 mg Lorazepam (Ativan) 0.5 mg IV Q6H PRN PRN Reason: Anxiety Last Admin: 10/14/16 01:28 Dose: 0.5 mg Magnesium Sulfate (Pharmacy To Dose - Magnesium Replacement) 0 dose .XX ASDIRECTED PRN PRN Reason: RX TO MONITOR MAG LEVELS Memantine (Namenda) 10 mg PO BID [facility] Last Admin: 10/15/16 09:34 Dose: 10 mg Ondansetron HCl (Zofran) 4 mg IV Q6H PRN PRN Reason: Nausea/Vomiting Nut Tx, Lact-Reduced , Iron [Boost Vhc] 3 Oz 0 each PO QID [facility] Last Admin: 10/15/16 15:05 Dose: Not Given Cranberry 250 Mg 0 each PO BEDTIME [facility] Last Admin: 10/14/16 20:47 Dose: Not Given Brinzolamide/Brimonidine Tart [ Simbrinza 1%-0.2% Eye Drop] 0 each EYEBOTH DAILY [facility] Last Admin: 10/15/16 09:35 Dose: Not Given Polyethylene Glycol (Miralax) 17 gm PO DAILY PRN PRN Reason: Constipation Potassium Chloride (Pharmacy To Dose - Potassium Replacement) 0 dose .XX ASDIRECTED PRN PRN Reason: RX TO MONITOR K LEVELS Sertraline HCl (Zoloft) 50 mg PO DAILY [facility] Last Admin: 10/15/16 09:34 Dose: 50 mg Temazepam (Restoril) 7.5 mg PO BEDTIME PRN PRN Reason: Sleep Discontinued Medications Cefazolin Sodium (Ancef) Confirm Administered Dose 2 gm .ROUTE .STK-MED ONE Stop: 10/13/16 11:04 Docusate Sodium (Colace) 100 mg PO BID PRN PRN Reason: Constipation Docusate Sodium (Colace) 100 mg PO DAILY [facility] Last Admin: 10/13/16 11:04 Dose: Not Given Fentanyl (Sublimaze) 50 mcg IVPUSH Q5M PRN PRN Reason: Pain Stop: 10/13/16 18:00 Hydromorphone HCl (Dilaudid) 0.25 mg IVPUSH ONETIME ONE Stop: 10/12/16 12:24 Last Admin: 10/12/16 13:09 Dose: 0.25 mg Hydromorphone HCl (Dilaudid) 0.25 mg IVPUSH ONETIME ONE Stop: 10/12/16 16:45 Last Admin: 10/12/16 16:54 Dose: 0.25 mg Sodium Chloride (Normal Saline) 1,000 mls @ 45 mls/hr IV ASDIRECTED [facility] Last Admin: 10/12/16 13:09 Dose: 45 mls/hr Lidocaine HCl (Xylocaine-Mpf 1%) Confirm Administered Dose 4 mls @ as directed .ROUTE .STK-MED ONE Stop: 10/13/16 09:29 Cefazolin Sodium/Dextrose 1 gm (/ Premix) 50 mls @ 200 mls/hr IV Q6H [facility] Stop: 10/14/16 06:14 Last Admin: 10/13/16 14:05 Dose: Not Given Cefazolin Sodium/Dextrose 1 gm (/ Premix) 50 mls @ 200 mls/hr IV Q6H [facility] Stop: 10/14/16 08:29 Last Infusion: 10/14/16 09:00 Dose: Infused Magnesium Sulfate 2 gm/ Premix 50 mls @ 25 mls/hr IV ONETIME ONE Stop: 10/14/16 12:23 Last Infusion: 10/14/16 13:44 Dose: Infused Iron Sucrose 500 mg/ Sodium (Chloride) 275 mls @ 80 mls/hr IV ONETIME ONE Stop: 10/15/16 11:56 Last Admin: 10/15/16 09:44 Dose: 80 mls/hr Magnesium Sulfate 2 gm/ Premix 50 mls @ 50 mls/hr IV ONETIME ONE Stop: 10/15/16 08:44 Last Admin: 10/15/16 09:29 Dose: 50 mls/hr Iodine (Iodine 2% Mild Tincture) Confirm Administered Dose 30 ml .ROUTE .STK- MED ONE Stop: 10/13/16 08:27 Last Admin: 10/13/16 11:30 Dose: 9 ml Lidocaine/Sodium Bicarbonate (Buffered Lidocaine 1% In Ns 8.4%) 0.25 ml IV ONETIME PRN PRN Reason: Prior to IV Start Stop: 10/13/16 18:00 Metoprolol Tartrate (Lopressor) 5 mg IVPUSH ONETIME ONE Stop: 10/13/16 08:35 Last Admin: 10/13/16 08:57 Dose: 5 mg Ondansetron HCl (Zofran) 4 mg IVPUSH ONETIME ONE Stop: 10/12/16 12:24 Last Admin: 10/12/16 13:11 Dose: 4 mg Ondansetron HCl (Zofran) 4 mg IVPUSH ONETIME PRN PRN Reason: Nausea/Vomiting Stop: 10/13/16 18:00 Ondansetron HCl (Zofran) Confirm Administered Dose 4 mg .ROUTE .STK-MED ONE Stop: 10/13/16 09:29 Pneumococcal 13-Valent Conj Vacc (Prevnar 13) 0.5 ml IM .ONCE ONE Stop: 10/13/16 10:52 Propofol (Diprivan 20 Ml) Confirm Administered Dose 400 mg .ROUTE .STK-MED ONE Stop: 10/13/16 09:27 Senna/Docusate Sodium (Senna Plus) 1 tab PO BID PRN PRN Reason: Constipation Sodium Chloride (Saline Flush) 10 ml FLUSH ASDIRECTED PRN PRN Reason: Keep Vein Open Stop: 10/13/16 18:00 Vancomycin HCl (Vancomycin) Confirm Administered Dose 1 gm .ROUTE .STK-MED ONE Stop: 10/13/16 08:27 - Exam General: alert, cooperative, no acute distress HEENT: Pupils equal, Pupils reactive, Mucous membr. moist/pink Neck: supple, trachea midline, no JVD Lungs: Normal respiratory effort, Decreased breath sounds Cardiovascular: regular rate, regular rhythm Abdomen: bowel sounds present, soft, no tenderness, no distension (Female) Exam: Other (indwelling murray catheter) Back Exam: normal inspection, decreased range of motion Extremities: no edema, normal pulses, no tenderness/swelling, no clubbing, no cyanosis, no calf tenderness Peripheral Pulses: 2+: dorsalis pedis (L), dorsalis pedis (R) Skin: warm, dry, intact Wound/Incisions: healing well, dressing dry and intact, no drainage Neurological: no new focal deficit Psy/Mental Status: alert, normal affect, normal mood - Problem List Review Problem List Initiated/Reviewed/Updated: Yes - My Orders Last 24 Hours: My Active Orders 10/15/16 07:30 Magnesium Rep Pharmacy to Dose [Pharmacy to Dose - Magnesium Replacement] 0 dose .XX ASDIRECTED PRN Potassium Rep Pharmacy to Dose [Pharmacy to Dose - Potassium Replacement] 0 dose .XX ASDIRECTED PRN 10/16/16 05:11 BASIC METABOLIC PANEL,BMP [CHEM] AM CBC WITH AUTO DIFF [HEME] AM MAGNESIUM [CHEM] AM 10/17/16 05:11 MAGNESIUM [CHEM] AM 10/17/16 07:00 CBC W/O DIFF,HEMOGRAM [HEME] MOTH@0700 10/20/16 07:00 CBC W/O DIFF,HEMOGRAM [HEME] MOTH@0700 10/24/16 07:00 CBC W/O DIFF,HEMOGRAM [HEME] MOTH@0700 10/27/16 07:00 CBC W/O DIFF,HEMOGRAM [HEME] MOTH@0700 10/31/16 07:00 CBC W/O DIFF,HEMOGRAM [HEME] MOTH@0700 11/03/16 07:00 CBC W/O DIFF,HEMOGRAM [HEME] MOTH@0700 - Plan Plan:: Assessment/Plan: Acute: Left Sub-Capital Hip Fx - POD #2 ORIF lt hip fx with Dr. Covington -Pain management and DVT prophylax per Ortho -VSS Urinary Tract Infection - 2/2 Raoultella Ornithinolytica - Sensitive to Rocephin 1 gram daily - Continue current treatment Post-Operative Anemia - Hgb baseline is 13, now 8.1 - Iron infusion x 1 - Repeat lab this afternoon Chronic: Glaucoma HTN Constipation Renal Disease- stable Osteoporosis Alzheimer's Disease- advanced Plan: She is fairly stable Continue PT/OT IS q2 awake after surgery--will be difficult due to end stage dementia; albuterol QID added PPI for GI ppx DVT ppx: Lovenox 30 SubQ daily Pain Management Aspiration/Fall Precautions Code status: DNR/DNI LOS anticipate > 96 hrs pending improvement of her Hgb level
[2016-10-15] MEDS: Ferrous Sulfate 325 MG Tab PO SCH (18:45)
[2016-10-15] MEDS: Lactated Ringers 1,000 ML IV SCH (20:13)
[2016-10-15] MEDS: cefTRIAXone 1 GM in Sodium Chloride 0.9% 100 ML IV SCH (20:18)
[2016-10-15] MEDS: CRANBERRY 250 MG PO SCH (20:20)
[2016-10-15] MEDS: Ketorolac 15 MG/ML SDV IVPUSH PRN (20:54)
--- NOTE | 2016-10-15 22:05 | PCM.DCSUM1 ---
Discharge Summary - Hospital Course Brief History: This is an 89 yo elderly white female with past medical hx/o HTN , Constipation, CKD, Osteoporosis, and Advanced Alzheimer's Disease who presented to [facility] w/ complaints of pain status fall and was found to have left hip fracture. - Discharge Data Discharge Date: 10/16/16 Discharge Disposition: DC/Tfer to [employer] [facility] 65 Condition: Good - Discharge Diagnosis/Problem(s) (1) UTI (urinary tract infection) SNOMED Code(s): 51267901 ICD Code: N39.0 - URINARY TRACT INFECTION, SITE NOT SPECIFIED Status: Acute Qualifiers: Urinary tract infection type: acute cystitis Hematuria presence: without hematuria Qualified Code(s): N30.00 - Acute cystitis without hematuria (2) Fall as cause of accidental injury at home as place of occurrence SNOMED Code(s): 24321618, 403944892 ICD Code: W19.XXXA - UNSPECIFIED FALL, INITIAL ENCOUNTER; Y92.009 - UNSP PLACE IN [facility]SP [facility] Status: Resolved Priority: High (3) Fracture of neck of femur, hip SNOMED Code(s): 0735515 ICD Code: S72.009A - FRACTURE OF UNSP PART OF NECK OF UNSP FEMUR, INIT Status: Resolved Priority: High (4) Dementia SNOMED Code(s): 22478129 ICD Code: F03.90 - UNSPECIFIED DEMENTIA WITHOUT BEHAVIORAL DISTURBANCE Status: Chronic Priority: Medium Qualifiers: Dementia type: Alzheimer's disease Alzheimer's disease onset: unspecified onset Dementia behavioral disturbance: without behavioral disturbance Qualified Code(s): G30.9 - Alzheimer's disease, unspecified; F02.80 - Dementia in other diseases classified elsewhere without behavioral disturbance (5) S/P hip replacement SNOMED Code(s): 335225714, 170043698, 462741673 ICD Code: Z96.649 - PRESENCE OF UNSPECIFIED ARTIFICIAL HIP JOINT Status: Acute Qualifiers: Laterality: left Qualified Code(s): Z96.642 - Presence of left artificial hip joint - Patient Summary/Data Operative Procedure(s) Performed: Left Hip Surgery Complications: Post-Operative Anemia Consults: Consultations 10/12/16 14:50 Consult to Case Management [CONS] Routine Consult to Salon Designer [CONS] Routine OT Evaluation and Treatment [CONS] Routine PT Evaluation and Treatment [CONS] Routine 10/13/16 09:37 OT Evaluation and Treatment [CONS] Routine PT Evaluation and Treatment [CONS] Routine 10/14/16 08:41 Consult to Brim Pouncer Machine Operator [CONS] Routine Hospital Course: Patient was primarily admitted for surgical correction of her left hip fracture status post fall. She underwent ORIF performed by Dr. Covington and she seemed to have done fairly well after that. Unfortunately, she developed post operative anemia a few days later and ended up getting blood and Iron transfusions. Her Hgb on the day of d/c was at 9.9. Her hospital course was fairly complicated by a diagnosis of UTI for which she grew Raoultella Ornthinolytica. However she did not develop sepsis or systemic infection. In fact, she remained hemo-dynamically stable since admission. Mrs. Roe has done well since admission. She will now be discharged back to [facility] to continue with her recovery (PT/OT). She will have an additional course of oral cipro to complete her antibiotic treatment. She will also have a re-check of her CBC on for her post-operative anemia. Patient as advised to follow up with her PCP and Dr. Covington as initially scheduled. - Patient Instructions Diet: Usual Diet as Tolerated Activity: As Tolerated Driving: Do Not Drive Showering/Bathing: May Shower, No Tub Bathing/Swimming Wound/Incision Care: Keep Operative Site/Wound Site Clean and Dry Notify Provider of: Fever, Increased Pain, Swelling and Redness, Drainage, Nausea and/or Vomiting Other/Special Instructions: - Please take all medications as directed. - PT/OT at the [facility]. - Keep all your appointment as scheduled - Discharge Plan Prescriptions/Med Rec: Hydrocodone/Acetaminophen [[place] 10-325 Tablet] 1 each PO Q4HR PRN #30 tablet PRN Reason: Pain Ciprofloxacin HCl [Cipro] 250 mg PO BID #6 tablet Enoxaparin Sodium [Lovenox] 40 mg SQ DAILY #10 ml Home Medications: Home Meds Diltiazem [Tiazac] 60 mg PO TID 01/11/14 [History] Sertraline [Zoloft] 25 mg PO DAILY 01/11/14 [History] Brinzolamide/Brimonidine Tart [Simbrinza 1%-0.2% Eye Drops] 1 drop EYEBOTH DAILY 07/02/15 [History] Docusate Sodium [Colace] 100 mg PO DAILY 07/02/15 [History] Cranberry 250 mg PO BEDTIME 10/03/15 [History] Memantine HCl [Namenda Xr] 10 mg PO BID 10/03/15 [History] Acetaminophen [Tylenol] 650 mg PO BID 10/12/16 [History] Aspirin [Halfprin] 81 mg PO DAILY 10/12/16 [History] Bisacodyl [Correctol] 10 mg RECTAL DAILY PRN 10/12/16 [History] Capsaicin 1 applic TOP BID PRN 10/12/16 [History] Nut Tx, Lact-Reduced, Iron [Boost VHC] 3 oz PO QID 10/12/16 [History] traMADol [Ultram] 50 mg PO Q8H PRN 10/12/16 [History] Ciprofloxacin HCl [Cipro] 250 mg PO BID #6 tablet 10/15/16 [Rx] Enoxaparin Sodium [Lovenox] 40 mg SQ DAILY #10 ml 10/15/16 [Rx] Hydrocodone/Acetaminophen [[place] 10-325 Tablet] 1 each PO Q4HR PRN #30 tablet [Rx] Patient Handouts: Hip Fracture Referrals: Tayo Covington MD [Physician] - (Follow up in two weeks. Call clinic on Monday to inquire about suture removal.) Tk Bahena MD [Primary Care Provider] - (Follow-up in 1 week.) - Discharge Summary/Plan Comment DC Time >30 min.: Yes (45) Discharge Summary/Plan Comment: Discharge to [facility] w/ PT/OT - General Info Date of Service: 10/16/16 Admission Dx/Problem (Free Text: Admission Diagnosis/Problem Admission Diagnosis/Problem Fall POD #1 ORIF lt hip fx with Dr Covington. Patient doing well thus far. VSS. She has dementia and has had intermittent aggitation but overall pain has been under fairly good control. Subjective Update: Follow Up Functional Status: Reports: pain controlled, tolerating diet, urinating. Denies : new symptoms - Review of Systems General: Denies: Fever, Chills HEENT: Reports: no symptoms Pulmonary: Denies: shortness of breath Cardiovascular: Denies: Chest Pain Gastrointestinal: Denies: Abdominal pain, Nausea, Vomiting Musculoskeletal: Reports: no symptoms Skin: Denies: cyanosis, pallor, rash Neurological: Reports: Difficulty Walking, Gait Disturbance Psychiatric: Denies: depression, anxiety, hallucinations Systems Review Comment: No overnight or acute issues. She is relatively stable. - Patient Data Vitals - Most Recent: Last Vital Signs Temp 36.9 C 10/15/16 20:11 Pulse 76 10/15/16 20:11 Resp 18 10/15/16 20:11 BP 128/68 10/15/16 20:11 Pulse Ox 94 L 10/15/16 20:11 Weight - Most Recent: 49.804 kg I&O - Last 24 hours: Intake & Output 10/15/16 10/15/16 10/15/16 06:59 14:59 22:59 Intake Total 1577 880 Balance 1577 880 Lab Results - Last 24 hrs: Laboratory Results - last 24 hr 10/15/16 10/15/16 10/15/16 Range/Units 04:25 04:25 12:00 WBC 4.98 5.84 (3.98-10.04) K/mm3 RBC 2.57 L 2.50 L (3.98-5.22) M/mm3 Hgb 8.1 L 8.1 L (11.2-15.7) gm/L Hct 25.5 L 24.8 L (34.1-44.9) % MCV 99.2 H 99.2 H (79.4-94.8) fl MCH 31.5 32.4 H (25.6-32.2) pg MCHC 31.8 L 32.7 (32.2-35.5) g/dl RDW Std Deviation 42.8 42.9 (36.4-46.3) fL Plt Count 99 L 101 L (182-369) K/mm3 MPV 10.3 9.7 (9.4-12.3) fl Neut % (Auto) 80.0 H 78.2 H (34.0-71.1) % Lymph % (Auto) 7.2 L 9.6 L (19.3-51.7) % [place] % (Auto) 10.0 10.1 (4.7-12.5) % Eos % (Auto) 2.2 1.5 (0.7-5.8) Baso % (Auto) 0.4 0.3 (0.1-1.2) % Neut # 3.98 4.56 (1.56-6.13) K/mm3 Lymph # 0.36 L 0.56 L (1.18-3.74) K/mm3 [place] # 0.50 H 0.59 H (0.24-0.36) K/mm3 Eos # 0.11 0.09 (0.04-0.36) K/mm3 Baso # 0.02 0.02 (0.01-0.08) K/mm3 Manual Slide Review Abnormal smear Abnormal smear Sodium 142 (136-145) mEq/L Potassium 3.6 (3.5-5.1) mEq/L Chloride 107 (98-107) mEq/L Carbon Dioxide 29 (21-32) mEq/L Anion Gap 9.6 (5-15) BUN 19 H (7-18) mg/dL Creatinine 0.7 (0.55-1.02) mg/dL Est Cr Clr Drug Dosing 39.13 mL/min Estimated GFR (MDRD) > 60 (>60) mL/min BUN/Creatinine Ratio 27.1 H (14-18) Glucose 109 (83-115) mg/dL Calcium 8.0 L (8.5-10.1) mg/dL Magnesium 1.7 L (1.8-2.4) mg/dl Med Orders - Current: Current Medications Acetaminophen (Tylenol) 650 mg PO Q4H PRN PRN Reason: Pain (Mild 1-3)/fever Last Admin: 10/14/16 15:46 Dose: 650 mg Acetaminophen (Tylenol) 650 mg PO BID [facility] Last Admin: 10/15/16 20:19 Dose: 650 mg Acetaminophen/Hydrocodone Bitart ([place] 325-5 Mg) 1 tab PO Q4H PRN PRN Reason: Pain (moderate 4-6) Last Admin: 10/15/16 09:43 Dose: 1 tab Albuterol/Ipratropium (Duoneb 3.0-0.5 Mg/3 Ml) 3 ml NEB Q4H PRN PRN Reason: Shortness Of Breath/wheezing Aspirin (Halfprin) 81 mg PO DAILY [facility] Last Admin: 10/15/16 09:35 Dose: 81 mg Bisacodyl (Dulcolax) 5 mg PO DAILY PRN PRN Reason: Constipation Capsaicin (Zostrix 0.025% Crm) 0 gm TOP BID PRN PRN Reason: Rash (USUALLY USED FOR PAIN) Diltiazem HCl (Cardizem) 60 mg PO TID [facility] Last Admin: 10/15/16 20:20 Dose: 60 mg Docusate Sodium (Colace) 100 mg PO BID [facility] Last Admin: 10/15/16 20:33 Dose: Not Given Enoxaparin Sodium (Lovenox) 30 mg SUBCUT DAILY [facility] Last Admin: 10/15/16 09:35 Dose: 30 mg Ferrous Sulfate (Ferrous Sulfate) 325 mg PO TIDMEALS [facility] Last Admin: 10/15/16 18:45 Dose: Not Given Hydrocortisone (Hydrocortisone 1% Crm) 0 gm TOP ASDIRECTED PRN PRN Reason: Itching Hydromorphone HCl (Dilaudid) 0.25 mg IVPUSH Q2H PRN PRN Reason: Pain (severe 7-10) Last Admin: 10/13/16 01:13 Dose: 0.25 mg Promethazine HCl 12.5 mg/ (Sodium Chloride) 50.5 mls @ 100 mls/hr IV Q6H PRN PRN Reason: Nausea/Vomiting Ceftriaxone Sodium 1 gm/ (Sodium Chloride) 100 mls @ 200 mls/hr IV Q24H [facility] Last Admin: 10/15/16 20:18 Dose: 200 mls/hr Lactated Ringer's (Ringers, Lactated) 1,000 mls @ 125 mls/hr IV ASDIRECTED [facility] Last Admin: 10/15/16 20:13 Dose: 125 mls/hr Ketorolac Tromethamine (Toradol) 15 mg IVPUSH Q6H PRN PRN Reason: Pain (severe 7-10) Stop: 10/17/16 09:48 Last Admin: 10/15/16 20:54 Dose: 15 mg Lorazepam (Ativan) 0.5 mg IV Q6H PRN PRN Reason: Anxiety Last Admin: 10/14/16 01:28 Dose: 0.5 mg Magnesium Sulfate (Pharmacy To Dose - Magnesium Replacement) 0 dose .XX ASDIRECTED PRN PRN Reason: RX TO MONITOR MAG LEVELS Memantine (Namenda) 10 mg PO BID [facility] Last Admin: 10/15/16 20:19 Dose: 10 mg Ondansetron HCl (Zofran) 4 mg IV Q6H PRN PRN Reason: Nausea/Vomiting Nut Tx, Lact-Reduced , Iron [Boost Vhc] 3 Oz 0 each PO QID [facility] Last Admin: 10/15/16 20:20 Dose: Not Given Cranberry 250 Mg 0 each PO BEDTIME [facility] Last Admin: 10/15/16 20:20 Dose: Not Given Brinzolamide/Brimonidine Tart [ Simbrinza 1%-0.2% Eye Drop] 0 each EYEBOTH DAILY [facility] Last Admin: 10/15/16 09:35 Dose: Not Given Polyethylene Glycol (Miralax) 17 gm PO DAILY PRN PRN Reason: Constipation Potassium Chloride (Pharmacy To Dose - Potassium Replacement) 0 dose .XX ASDIRECTED PRN PRN Reason: RX TO MONITOR K LEVELS Sertraline HCl (Zoloft) 50 mg PO DAILY [facility] Last Admin: 10/15/16 09:34 Dose: 50 mg Temazepam (Restoril) 7.5 mg PO BEDTIME PRN PRN Reason: Sleep Discontinued Medications Albuterol (Proventil Neb Soln) 2.5 mg NEB Q6HRRT [facility] Last Admin: 10/15/16 11:28 Dose: 2.5 mg Cefazolin Sodium (Ancef) Confirm Administered Dose 2 gm .ROUTE .STK-MED ONE Stop: 10/13/16 11:04 Docusate Sodium (Colace) 100 mg PO BID PRN PRN Reason: Constipation Docusate Sodium (Colace) 100 mg PO DAILY [facility] Last Admin: 10/13/16 11:04 Dose: Not Given Fentanyl (Sublimaze) 50 mcg IVPUSH Q5M PRN PRN Reason: Pain Stop: 10/13/16 18:00 Hydromorphone HCl (Dilaudid) 0.25 mg IVPUSH ONETIME ONE Stop: 10/12/16 12:24 Last Admin: 10/12/16 13:09 Dose: 0.25 mg Hydromorphone HCl (Dilaudid) 0.25 mg IVPUSH ONETIME ONE Stop: 10/12/16 16:45 Last Admin: 10/12/16 16:54 Dose: 0.25 mg Sodium Chloride (Normal Saline) 1,000 mls @ 45 mls/hr IV ASDIRECTED [facility] Last Admin: 10/12/16 13:09 Dose: 45 mls/hr Lidocaine HCl (Xylocaine-Mpf 1%) Confirm Administered Dose 4 mls @ as directed .ROUTE .STK-MED ONE Stop: 10/13/16 09:29 Cefazolin Sodium/Dextrose 1 gm (/ Premix) 50 mls @ 200 mls/hr IV Q6H [facility] Stop: 10/14/16 06:14 Last Admin: 10/13/16 14:05 Dose: Not Given Cefazolin Sodium/Dextrose 1 gm (/ Premix) 50 mls @ 200 mls/hr IV Q6H [facility] Stop: 10/14/16 08:29 Last Infusion: 10/14/16 09:00 Dose: Infused Magnesium Sulfate 2 gm/ Premix 50 mls @ 25 mls/hr IV ONETIME ONE Stop: 10/14/16 12:23 Last Infusion: 10/14/16 13:44 Dose: Infused Iron Sucrose 500 mg/ Sodium (Chloride) 275 mls @ 80 mls/hr IV ONETIME ONE Stop: 10/15/16 11:56 Last Admin: 10/15/16 09:44 Dose: 80 mls/hr Magnesium Sulfate 2 gm/ Premix 50 mls @ 50 mls/hr IV ONETIME ONE Stop: 10/15/16 08:44 Last Admin: 10/15/16 09:29 Dose: 50 mls/hr Iodine (Iodine 2% Mild Tincture) Confirm Administered Dose 30 ml .ROUTE .STK- MED ONE Stop: 10/13/16 08:27 Last Admin: 10/13/16 11:30 Dose: 9 ml Lidocaine/Sodium Bicarbonate (Buffered Lidocaine 1% In Ns 8.4%) 0.25 ml IV ONETIME PRN PRN Reason: Prior to IV Start Stop: 10/13/16 18:00 Metoprolol Tartrate (Lopressor) 5 mg IVPUSH ONETIME ONE Stop: 10/13/16 08:35 Last Admin: 10/13/16 08:57 Dose: 5 mg Ondansetron HCl (Zofran) 4 mg IVPUSH ONETIME ONE Stop: 10/12/16 12:24 Last Admin: 10/12/16 13:11 Dose: 4 mg Ondansetron HCl (Zofran) 4 mg IVPUSH ONETIME PRN PRN Reason: Nausea/Vomiting Stop: 10/13/16 18:00 Ondansetron HCl (Zofran) Confirm Administered Dose 4 mg .ROUTE .STK-MED ONE Stop: 10/13/16 09:29 Pneumococcal 13-Valent Conj Vacc (Prevnar 13) 0.5 ml IM .ONCE ONE Stop: 10/13/16 10:52 Propofol (Diprivan 20 Ml) Confirm Administered Dose 400 mg .ROUTE .STK-MED ONE Stop: 10/13/16 09:27 Senna/Docusate Sodium (Senna Plus) 1 tab PO BID PRN PRN Reason: Constipation Sodium Chloride (Saline Flush) 10 ml FLUSH ASDIRECTED PRN PRN Reason: Keep Vein Open Stop: 10/13/16 18:00 Vancomycin HCl (Vancomycin) Confirm Administered Dose 1 gm .ROUTE .STK-MED ONE Stop: 10/13/16 08:27 - Exam General: Reports: alert, no acute distress HEENT: Reports: Pupils equal, Pupils reactive Neck: Reports: supple, trachea midline, no JVD Lungs: Reports: Normal respiratory effort, Decreased breath sounds Cardiovascular: Reports: Regular Rate, Regular Rhythm Abdomen: Reports: bowel sounds present, soft, no tenderness, no distension (Female) Exam: Deferred Rectal (Female) Exam: Deferred Back Exam: Reports: normal inspection, decreased range of motion Extremities: Reports: no edema, normal pulses, no tenderness/swelling, no clubbing, no cyanosis, no calf tenderness Skin: Reports: warm, dry, intact Wound/Incisions: Reports: healing well, dressing dry and intact, no drainage Neurological: Reports: no new focal deficit Psy/Mental Status: Reports: alert, normal affect, normal mood *Q Meaningful Use (DIS) - VTE *Q VTE Criteria *Q: - Stroke *Q Stroke Criteria *Q: - AMI *Q AMI Criteria *Q:
[2016-10-16] MEDS: Lactated Ringers 1,000 ML IV SCH (06:32)
[2016-10-16] MEDS: Acetaminophen/HYDROcodone 325-5 MG Tab PO PRN (09:11)
[2016-10-16] MEDS: Aspirin 81 MG Tab.EC PO SCH (09:12)
[2016-10-16] MEDS: Memantine 10 MG Tab PO SCH (09:12)
[2016-10-16] MEDS: Acetaminophen 325 MG Tab PO SCH (09:13)
[2016-10-16] MEDS: Sertraline 50 MG Tab PO SCH (09:13)
[2016-10-16] MEDS: [UNRECOGNIZED DRUG - OTHER] PO SCH ×2 (09:13→13:47)
[2016-10-16] MEDS: BRIMONIDINE TART EYEBOTH SCH (09:13)
[2016-10-16] MEDS: IRON PO SCH ×2 (09:13→13:47)
[2016-10-16] MEDS: Docusate Sodium 100 MG Cap PO SCH (09:13)
[2016-10-16] MEDS: BRINZOLAMIDE EYEBOTH SCH (09:13)
[2016-10-16] MEDS: Ferrous Sulfate 325 MG Tab PO SCH ×2 (09:13→13:46)
[2016-10-16] MEDS: Enoxaparin 30 MG/0.3 ML Syringe SUBCUT SCH (09:13)
[2016-10-16] MEDS ORDERED: Sodium Chloride 0.9% 250 ML ONE (09:17)
[2016-10-16 13:14] VITALS: BP 135/70
[2016-10-17] MEDS ORDERED: Bisacodyl 10 MG Supp RECTAL SCH (09:00)
== END 2016-10-16 14:30 | DRG 470 ==
LOC: SUPCPDRO 11:45 → JD.ED 11:45 → JD.MS 14:33 → JD.OB 10-13 23:30 → JD.ICU 10-14 02:06
PROVIDERS: ADMIT Internal Medicine; ATTEND Internal Medicine
PROC: 0SRS019 Replacement of Left Hip Joint, Femoral Surface with Metal Synthetic Substitute, Cemented, Open Approach (ICD-10-PCS; principal; 2016-10-12)
DX: S72.002A Fracture of unspecified part of neck of left femur, initial encounter for closed fracture (principal); W18.39XA Other fall on same level, initial encounter; S72.012A Unspecified intracapsular fracture of left femur, initial encounter for closed fracture; N39.0 Urinary tract infection, site not specified; F02.81 Dementia in other diseases classified elsewhere, unspecified severity, with behavioral disturbance; W17.89XA Other fall from one level to another, initial encounter; Y92.89 Other specified places as the place of occurrence of the external cause; I10 Essential (primary) hypertension; N28.9 Disorder of kidney and ureter, unspecified; H40.9 Unspecified glaucoma; G30.9 Alzheimer's disease, unspecified; I12.9 Hypertensive chronic kidney disease with stage 1 through stage 4 chronic kidney disease, or unspecified chronic kidney disease; N18.9 Chronic kidney disease, unspecified; K59.00 Constipation, unspecified; M81.0 Age-related osteoporosis without current pathological fracture; Z66 Do not resuscitate; Z79.82 Long term (current) use of aspirin; Z79.899 Other long term (current) drug therapy
CPT/HCPCS: 36415; 70450; 71010; 72125; 73552; 73700; 80053; 81001; 85025; 85610; 85730; 86850; 86900; 86901; 87086; 87186; 93005; 96361; 96374; 96375; 99285; J1170; J2405; J7040; 01200; 36430; 73502-26-LT; 73502-LT; 80048; 83735; 85027; 86922; 87088; 87641; 94640-76; 94664; 94760; 96376; 97110-GP; 97161-GP; 97167-GO; 97530-GP; 99222; 99232; 99239; A9270-GY; C1713; C1776; J0690; J0696; J1650; J1756; J1885; J2060; J2704; J3370; J3475; J3490; J7030; J7050; J7120; P9016